=== PATIENT | female | born 1955 | race Caucasian/White ===

== ENCOUNTER 2018-08-13 16:08 | Emergency (ER) | payer OTHER ==
[2018-08-13 16:21] VITALS: RESP 18
--- NOTE | 2018-08-13 16:36 | ED ---
General Adult HPI - General Chief complaint: Extremity Problem,Nontraumatic Stated complaint: Lt leg/foot pain Time Seen by Provider: 08/13/18 16:22 Source: patient, RN notes reviewed, old records reviewed Mode of arrival: ambulatory Limitations: no limitations - History of Present Illness Initial comments: 62-year-old female patient presents to ED with approximately 3 weeks of left lower extremity pain. Patient was that she has pain in her posterior calf region as well as her foot. She reports that she was seen by her primary care provider for this problem approximately 3 weeks ago in which she had an outpatient ultrasound of her leg. Patient reports that she is still not gotten the results of this. Patient states that she still has pain in this region. Patient denies any other complaints. Patient denies any chest pain shortness breath abdominal pain nausea vomiting or diarrhea. Systemic: Pt denies fatigue, myalgia, fever/chills, rash. Pt denies weakness, night sweats, weight loss. Neuro: Pt denies headache, visual disturbances, syncope or pre-syncope. HEENT: Pt denies ocular discharge or irritation, otalgia, rhinorrhea, pharyngiti s or notable lymphadenopathy. Cardiopulmonary: Pt denies chest pain, SOB, heart palpitations, dyspnea on exertion. Abdominal/GI: Pt denies abdominal pain, n/v/d. : Pt denies dysuria, burning w/ urination, frequency/urgency. Denies new onset urinary or bowel incontinence. MSK: Pt denies myalgia, loss of strength or function in extremities. Neuro: Pt denies new onset weakness, paresthesias. - Related Data Home Medications Medication Instructions Recorded Confirmed Atorvastatin [Lipitor] 20 mg PO DAILY 08/13/18 08/13/18 Lisinopril 20 mg PO DAILY 08/13/18 08/13/18 Meclizine [Antivert] 25 mg PO DIRECTED PRN 08/13/18 08/13/18 metFORMIN HCL 500 mg PO DIRECTED 08/13/18 08/13/18 Allergies Allergy/AdvReac Type Severity Reaction Status Date / Time acetaminophen [From Vicodin] Allergy Rash/Hives Verified 08/13/18 16:21 hydrocodone [From Vicodin] Allergy Rash/Hives Verified 08/13/18 16:21 Penicillins Allergy Rash/Hives Verified 08/13/18 16:21 Review of Systems ROS Statement: Those systems with pertinent positive or pertinent negative responses have been documented in the HPI. ROS Other: All systems not noted in ROS Statement are negative. Past Medical History Past Medical History: Diabetes Mellitus, Hyperlipidemia, Hypertension Additional Past Medical History / Comment(s): vertigo History of Any Multi-Drug Resistant Organisms: None Reported Past Surgical History: Tubal Ligation Past Psychological History: No Psychological Hx Reported Smoking Status: Former smoker Past Alcohol Use History: None Reported Past Drug Use History: None Reported General Exam - General Exam Comments Initial Comments: Constitutional: NAD, AOX3, Pt has pleasant affect. HEENT: NC/AT, trachea midline, neck supple, no lymphadenopathy. Posterior pharynx non erythematous, without exudates. External ears appear normal, without discharge. Mucous membranes moist. Eyes PERRLA, EOM intact. There is no scleral icterus. No pallor noted. Cardiopulmonary: RRR, no murmurs, rubs or gallops, no JVD noted. Lungs CTAB in anterior and posterior alvarez. No peripheral edema. Abdominal exam: Abdomen soft and non-distended. Abdomen non-tender to palpation in all 4 quadrants. Bowel sounds active in LLQ. No hepatosplenomegaly. No ecchymosis Neuro: CN II-XII grossly intact. No nuchal rigidity. MSK: Left posterior calf mildly tender to palpation. Right posterior calf nontender to palpation. Homans sign negative bilaterally. Posterior tibialis and radial pulse +2 bilaterally. No erythema or edema. Sensation intact in upper and lower extremities. Full active ROM in upper and lower extremities, 5/5 stregnth. Limitations: no limitations Course Vital Signs 08/13/18 16:12 Temperature 97.9 F Pulse Rate 84 Respiratory 18 Rate Blood Pressure 138/70 O2 Sat by Pulse 99 Oximetry Medical Decision Making - Medical Decision Making 62-year-old female patient presents to ED with approximately 3 weeks of left lower extremity pain. Patient was that she has pain in her posterior calf region as well as her foot. She reports that she was seen by her primary care provider for this problem approximately 3 weeks ago in which she had an outpatient ultrasound of her leg. Patient reports that she is still not gotten the results of this. Patient states that she still has pain in this region. Melo ramirez denies any other complaints. Patient denies any chest pain shortness breath abdominal pain nausea vomiting or diarrhea. Patient vital signs stable, afebrile. Left posterior calf mildly tender to palpation. Right posterior calf nontender to palpation. Homans sign negative bilaterally. Posterior tibialis and radial pulse +2 bilaterally. No erythema or edema. Plain film of to/fibula, foot displayed no acute process. Venous Doppler ultrasound bilateral didn't displayany DVT. Patient stated that she has history of diabetic neuropathy, this' care. Patient pain. Patient discharged. Patient to follow up with primary care provider to 2 days. Patient also given orthopedic consult symptoms persist. Patient returned ER physician or symptoms. Case discussed with Dr. Kim. - Lab Data Result diagrams: 08/13/18 16:37 08/13/18 16:37 Lab Results 08/13/18 08/13/18 08/13/18 Range/Units 16:37 16:37 16:37 WBC 8.8 (3.8-10.6) k/uL RBC 5.08 (3.80-5.40) m/uL Hgb 15.2 (11.4-16.0) gm/dL Hct 45.8 (34.0-46.0) % MCV 90.3 (80.0-100.0) fL MCH 29.9 (25.0-35.0) pg MCHC 33.1 (31.0-37.0) g/dL RDW 13.4 (11.5-15.5) % Plt Count 291 (150-450) k/uL Neutrophils % 57 % Lymphocytes % 33 % Monocytes % 5 % Eosinophils % 3 % Basophils % 0 % Neutrophils # 5.0 (1.3-7.7) k/uL Lymphocytes # 2.9 (1.0-4.8) k/uL Monocytes # 0.5 (0-1.0) k/uL Eosinophils # 0.3 (0-0.7) k/uL Basophils # 0.0 (0-0.2) k/uL PT 9.5 (9.0-12.0) sec INR 0.9 (<1.2) APTT 21.5 L (22.0-30.0) sec Sodium 141 (137-145) mmol/L Potassium 4.5 (3.5-5.1) mmol/L Chloride 102 (98-107) mmol/L Carbon Dioxide 28 (22-30) mmol/L Anion Gap 11 mmol/L BUN 15 (7-17) mg/dL Creatinine 0.57 (0.52-1.04) mg/dL Est GFR (CKD-EPI)AfAm >90 (>60 ml/min/1.73 sqM) Est GFR (CKD-EPI)NonAf >90 (>60 ml/min/1.73 sqM) Glucose 214 H (74-99) mg/dL Calcium 9.6 (8.4-10.2) mg/dL Total Bilirubin 0.8 (0.2-1.3) mg/dL AST 20 (14-36) U/L ALT 30 (9-52) U/L Alkaline Phosphatase 93 (38-126) U/L Total Protein 7.2 (6.3-8.2) g/dL Albumin 4.6 (3.5-5.0) g/dL Disposition Clinical Impression: Myalgia Disposition: HOME SELF-CARE Condition: Stable Instructions (If sedation given, give patient instructions): Musculoskeletal Pain (ED) Additional Instructions: Patient to adhere to previously discussed treatment plan and will take medication(s) as directed. Patient to follow up with PCP in 1-2 days. Patient to return to ED if symptoms do not improve. follow up with PCP in 1-2 days. Please follow-up with orthopedic surgeon symptoms persist. Please return to ER if conditions worsen. Is patient prescribed a controlled substance at d/c from ED?: No [facility] Tyrone Eng MD [STAFF PHYSICIAN] - 1-2 days
[2018-08-13 16:46] LABS: Basophils % (A) 0 %; Eosinophils # (A) 0.3 k/uL (0-0.7); Eosinophils % (A) 3 %; HCT 45.8 % (34.0-46.0); HGB 15.2 gm/dL (11.4-16.0); Lymphocytes # (A) 2.9 k/uL (1.0-4.8); Lymphocytes % (A) 33 %; MCH 29.9 pg (25.0-35.0); MCHC 33.1 g/dL (31.0-37.0); MCV 90.3 fL (80.0-100.0); Mean Platelet Volume 7.5; Monocytes # (A) 0.5 k/uL (0-1.0); Monocytes % (A) 5 %; Neutrophils % (A) 57 %; Platelet Count 291 k/uL (150-450); RBC 5.08 m/uL (3.80-5.40); RDW 13.4 % (11.5-15.5); WBC 8.8 k/uL (3.8-10.6)
[2018-08-13 16:57] LABS: ALT 30 U/L (9-52); AST 20 U/L (14-36); Albumin 4.6 g/dL (3.5-5.0); Alkaline Phosphatase 93 U/L (38-126); Anion Gap 11 mmol/L; Blood Urea Nitrogen 15 mg/dL (7-17); Calcium 9.6 mg/dL (8.4-10.2); Carbon Dioxide 28 mmol/L (22-30); Chloride 102 mmol/L (98-107); Glucose 214 mg/dL (74-99); Potassium 4.5 mmol/L (3.5-5.1); Sodium 141 mmol/L (137-145); Total Bilirubin 0.8 mg/dL (0.2-1.3); Total Protein 7.2 g/dL (6.3-8.2)
[2018-08-13 17:04] LABS: INR 0.9 (<1.2); Prothrombin Time 9.5 sec (9.0-12.0)
[2018-08-13 17:05] LABS: Partial Thromboplastin Time 21.5 sec (22.0-30.0)
--- NOTE | 2018-08-13 17:17 | XR ---
PROCEDURE: XR tibia fibula LT - 3V DATE AND TIME: 08/13/2018 5:03 PM CLINICAL INDICATION: PHH; Pain TECHNIQUE: Department protocol COMPARISON: None FINDINGS: There is no fracture or malalignment. No focal skeletal lesion. Scattered degenerative join t changes are appreciated. The soft tissues are unremarkable. IMPRESSION: NO ACUTE PROCESS.
--- NOTE | 2018-08-13 17:18 | XR ---
PROCEDURE: XR foot complete LT - 3V DATE AND TIME: 08/13/2018 5:03 PM CLINICAL INDICATION: PHH; Pain TECHNIQUE: Department protocol COMPARISON: None FINDINGS: There is no fracture or malalignment. No focal skeletal findings. Scattered osteoarthritis changes are appreciated. The soft tissues are unremarkable. IMPRESSION: NO ACUTE PROCESS.
--- NOTE | 2018-08-13 18:27 | US ---
EXAMINATION TYPE: US venous doppler duplex LE BI DATE OF EXAM: 08/13/2018 4:31 PM COMPARISON: NONE CLINICAL HISTORY: Pain. Pain and swelling. SIDE PERFORMED: Bilateral TECHNIQUE: The lower extremity deep venous system is examined utilizing real time linear array sonog henrry with graded compression, doppler sonography and color-flow sonography. VESSELS IMAGED: External Iliac Vein (EIV) Common Femoral Vein Deep Femoral Vein Greater Saphenous Vein * Femoral Vein Popliteal Vein Small Saphenous Vein * Proximal Calf Veins (* superficial vessels) FINDINGS: Grayscale, color doppler, spectral doppler imaging performed of the deep veins of the lowe r extremities. There is normal flow, compressibility, vascular waveforms. IMPRESSION: NEGATIVE FOR DVT, BILATERAL LOWER EXTREMITIES.
[2018-08-13 19:01] VITALS: BP 142/67; PULSE 79; TEMP 98.1
== END 2018-08-13 18:55 | disposition home or self-care (01) ==
LOC: EC 16:08
DX: M79.18 Myalgia, other site (principal); E11.40 Type 2 diabetes mellitus with diabetic neuropathy, unspecified; E78.5 Hyperlipidemia, unspecified; I10 Essential (primary) hypertension; Z87.891 Personal history of nicotine dependence; Z98.51 Tubal ligation status; Z79.84 Long term (current) use of oral hypoglycemic drugs; Z79.899 Other long term (current) drug therapy
CPT/HCPCS: 36415; 80053; 85025; 85610; 85730; 93970; 99284

== ENCOUNTER 2019-11-26 12:48 | Emergency (ER) | payer MEDICARE, OTHER ==
[2019-11-26 12:53] VITALS: RESP 20; TEMP 97.7
--- NOTE | 2019-11-26 13:06 | ED ---
General Adult HPI - General Chief complaint: Dizziness Stated complaint: Dizziness Time Seen by Provider: 11/26/19 12:57 Source: patient, EMS Mode of arrival: EMS Limitations: no limitations - History of Present Illness Initial comments: Patient presents the ED ambulance for evaluation with her daughter at bedside. Patient states that she awoke at about 5:30 AM this morning with severe dizziness and nausea. Patient states that she has also had a few bouts of vomiting today. Patient states that her dizziness is worse when turning her head and with changes in position. Patient describes her dizziness as a "spinning" sensation. Patient states that she is not currently dizzy while sitting still. Patient was given a dose of Zofran by EMS. Patient states that she has a history of vertigo. Patient is diabetic, and her blood glucose was reportedly in the 300s today. Patient denies having any pain, fever or chills, cough or cold symptoms, dysuria or urinary symptoms, headache, focal numbness or weakness, visual changes, speech difficulty, chest pain, dyspnea, palpitations, syncope, abdominal pain, diarrhea, bloody or melanotic stool, hematemesis, or any other symptoms or complaints. - Related Data Home Medications Medication Instructions Recorded Confirmed Atorvastatin [Lipitor] 20 mg PO HS 08/13/18 11/26/19 lisinopriL 20 mg PO HS 08/13/18 11/26/19 metFORMIN HCL 500 mg PO BID 08/13/18 11/26/19 Previous Rx's Medication Instructions Recorded Meclizine [Antivert] 25 mg PO TID PRN #10 tab 11/26/19 Ondansetron Odt [Zofran Odt] 4 mg PO Q8HR PRN #10 tab 11/26/19 Allergies Allergy/AdvReac Type Severity Reaction Status Date / Time hydrocodone [From Vicodin] Allergy Rash/Hives Verified 11/26/19 13:57 Penicillins Allergy Rash/Hives Verified 11/26/19 13:57 Review of Systems ROS Statement: Those systems with pertinent positive or pertinent negative responses have been documented in the HPI. ROS Other: All systems not noted in ROS Statement are negative. Past Medical History Past Medical History: Diabetes Mellitus, Hyperlipidemia, Hypertension Additional Past Medical History / Comment(s): vertigo History of Any Multi-Drug Resistant Organisms: None Reported Past Surgical History: Tubal Ligation Past Psychological History: No Psychological Hx Reported Smoking Status: Former smoker Past Alcohol Use History: None Reported Past Drug Use History: None Reported General Exam Limitations: no limitations General appearance: alert, in no apparent distress Head exam: Present: atraumatic, normocephalic Eye exam: Present: normal appearance, PERRL, EOMI. Absent: nystagmus ENT exam: Present: mucous membranes moist, TM's normal bilaterally Neck exam: Present: other (Trachea is in midline). Absent: tenderness, meningismus Respiratory exam: Present: normal lung sounds bilaterally. Absent: respiratory distress, wheezes, rales, rhonchi Cardiovascular Exam: Present: regular rate, normal rhythm, normal heart sounds, other (Normal radial pulses bilaterally) GI/Abdominal exam: Present: soft. Absent: distended, tenderness, guarding Extremities exam: Present: full ROM. Absent: tenderness, pedal edema, calf tenderness Neurological exam: Present: alert, oriented X3, CN II-XII intact. Absent: motor sensory deficit Psychiatric exam: Present: normal affect, normal mood Skin exam: Present: warm, dry, intact, normal color Course Vital Signs 11/26/19 12:49 Temperature 97.7 F Pulse Rate 75 Respiratory 20 Rate Blood Pressure 141/83 O2 Sat by Pulse 97 Oximetry - Reevaluation(s) Reevaluation #1: 11/26/19 14:35 Patient states that her dizziness and nausea have now improved, and she denies development of any new symptoms while in the ED. Patient has been ambulatory in the ED and has been able to go to the bathroom by herself without any assistance. She remains alert and breathing comfortably. Patient and daughter are aware of the patient's test results, and patient feels comfortable going home with her daughter at this time. Patient was counseled about dizziness/positional vertigo and hyperglycemia. Patient was clearly explained return and follow-up instructions. Patient was instructed to follow up closely with her primary care provider. Patient feels comfortable with this plan. EKG Findings - EKG Comments: EKG Findings:: Normal sinus rhythm, ventricular rate of 73 bpm, single PAC, normal WI and QRS intervals, nonspecific ST abnormality, mildly prolonged QTc interval of 471 ms, normal axis Medical Decision Making - Medical Decision Making Patient reports sudden onset of "spinning" dizziness while in bed this morning. Patient reports that her dizziness is worse when turning her head and with changes in position. Patient reports having history of vertigo. Patient's head CT is unremarkable. Patient is noted to be slightly hyperglycemic, but not ketotic or acidotic. Patient was hydrated with IV fluids in the ED. Patient's labs are otherwise fairly unremarkable. I suspect that the patient's symptoms are likely secondary to positional vertigo. Will discharge patient home with her daughter at this time. - Lab Data Result diagrams: 11/26/19 13:15 11/26/19 13:15 Lab Results 11/26/19 11/26/19 11/26/19 Range/Units 13:15 13:15 13:15 WBC 8.0 (3.8-10.6) k/uL RBC 4.68 (3.80-5.40) m/uL Hgb 14.5 (11.4-16.0) gm/dL Hct 42.2 (34.0-46.0) % MCV 90.3 (80.0-100.0) fL MCH 30.9 (25.0-35.0) pg MCHC 34.2 (31.0-37.0) g/dL RDW 12.9 (11.5-15.5) % Plt Count 237 (150-450) k/uL Neutrophils % 75 % Lymphocytes % 18 % Monocytes % 5 % Eosinophils % 1 % Basophils % 1 % Neutrophils # 6.0 (1.3-7.7) k/uL Lymphocytes # 1.4 (1.0-4.8) k/uL Monocytes # 0.4 (0-1.0) k/uL Eosinophils # 0.1 (0-0.7) k/uL Basophils # 0.0 (0-0.2) k/uL Sodium 135 L (137-145) mmol/L Potassium 4.8 (3.5-5.1) mmol/L Chloride 103 (98-107) mmol/L Carbon Dioxide 24 (22-30) mmol/L Anion Gap 8 mmol/L BUN 9 (7-17) mg/dL Creatinine 0.45 L (0.52-1.04) mg/dL Est GFR (CKD-EPI)AfAm >90 (>60 ml/min/1.73 sqM) Est GFR (CKD-EPI)NonAf >90 (>60 ml/min/1.73 sqM) Glucose 297 H (74-99) mg/dL Calcium 8.8 (8.4-10.2) mg/dL Total Bilirubin 0.8 (0.2-1.3) mg/dL AST 20 (14-36) U/L ALT 15 (4-34) U/L Alkaline Phosphatase 116 (38-126) U/L Troponin I 0.025 (0.000-0.034) ng/mL Total Protein 6.4 (6.3-8.2) g/dL Albumin 3.9 (3.5-5.0) g/dL Acetone, Qual Negative (Negative) - Radiology Data Radiology results: report reviewed (CT head is negative) Disposition Clinical Impression: Dizziness, Hyperglycemia Narrative: Suspected positional vertigo Disposition: HOME SELF-CARE Condition: Stable Instructions (If sedation given, give patient instructions): Dizziness (ED), Vertigo (ED), Diabetic Hyperglycemia (ED) Additional Instructions: Return to the ER immediately should you develop increased dizziness, fainting, any significant pain, a fever, shortness of breath, persistent vomiting, or new or worsening symptoms. Follow up closely with your primary care provider. Prescriptions: Meclizine [Antivert] 25 mg PO TID PRN #10 tab PRN Reason: Dizziness Ondansetron Odt [Zofran Odt] 4 mg PO Q8HR PRN #10 tab PRN Reason: Nausea Is patient prescribed a controlled substance at d/c from ED?: No Referrals: Annie Fagan MD [Primary Care Provider] - 1-2 days Time of Disposition: 14:42
[2019-11-26] MEDS ORDERED: LORazepam 2 MG/ML INJ IV STA (13:10)
[2019-11-26] MEDS ORDERED: SODIUM CHLORIDE 0.9% 1,000 ML IV STA (13:10)
[2019-11-26] MEDS ORDERED: ONDANSETRON 4 MG/2 ML VIAL IVP STA (13:10)
[2019-11-26] MEDS ORDERED: diphenhydrAMINE 50 MG/ML 1 ML VIAL IVP STA (13:10)
[2019-11-26] MEDS ORDERED: MECLIZINE 12.5 MG TAB PO STA (13:10)
[2019-11-26 13:24] LABS: Basophils % (A) 1 %; Eosinophils # (A) 0.1 k/uL (0-0.7); Eosinophils % (A) 1 %; HCT 42.2 % (34.0-46.0); HGB 14.5 gm/dL (11.4-16.0); Lymphocytes # (A) 1.4 k/uL (1.0-4.8); Lymphocytes % (A) 18 %; MCH 30.9 pg (25.0-35.0); MCHC 34.2 g/dL (31.0-37.0); MCV 90.3 fL (80.0-100.0); Mean Platelet Volume 8.3; Monocytes # (A) 0.4 k/uL (0-1.0); Monocytes % (A) 5 %; Neutrophils % (A) 75 %; Platelet Count 237 k/uL (150-450); RBC 4.68 m/uL (3.80-5.40); RDW 12.9 % (11.5-15.5)
[2019-11-26 13:32] LABS: ALT 15 U/L (4-34); AST 20 U/L (14-36); African American GFR (CKD) >90 (>60 ml/min/1.73 sqM); Albumin 3.9 g/dL (3.5-5.0); Alkaline Phosphatase 116 U/L (38-126); Anion Gap 8 mmol/L; Blood Urea Nitrogen 9 mg/dL (7-17); Calcium 8.8 mg/dL (8.4-10.2); Carbon Dioxide 24 mmol/L (22-30); Chloride 103 mmol/L (98-107); Glucose 297 mg/dL (74-99); Non-African American GFR(CKD) >90 (>60 ml/min/1.73 sqM); Potassium 4.8 mmol/L (3.5-5.1); Sodium 135 mmol/L (137-145); Total Bilirubin 0.8 mg/dL (0.2-1.3); Total Protein 6.4 g/dL (6.3-8.2)
--- NOTE | 2019-11-26 14:29 | CT ---
EXAMINATION TYPE: CT brain wo con DATE OF EXAM: 11/26/2019 HISTORY: Dizziness and nausea CT DLP: 1099.4 mGycm. Automated Exposure Control for Dose Reduction was Utilized. TECHNIQUE: CT scan of the head is performed without contrast. COMPARISON: None FINDINGS: There is no acute intracranial hemorrhage, midline shift, or mass effect identified. Mild patchy whit e matter hypodensities most likely of sequela of chronic microvascular ischemic change. The ventricles, sulci, and cisterns are normal in configuration and prominent in size concordant with age related volume loss. No extra-axial fluid collection. Bones and extracranial soft tissues are intact. The globes are gross ly symmetric. Visualized sinuses and mastoid air cells are clear. IMPRESSION: No acute intracranial hemorrhage, midline shift, or mass effect.
[2019-11-26 14:39] VITALS: BP 135/63; PULSE 70
== END 2019-11-26 14:55 | disposition home or self-care (01) ==
LOC: EC 12:48
DX: E11.65 Type 2 diabetes mellitus with hyperglycemia (principal); I10 Essential (primary) hypertension; E78.5 Hyperlipidemia, unspecified; E11.9 Type 2 diabetes mellitus without complications; Z79.84 Long term (current) use of oral hypoglycemic drugs; Z79.899 Other long term (current) drug therapy; Z88.0 Allergy status to penicillin; Z88.5 Allergy status to narcotic agent; Z88.6 Allergy status to analgesic agent; Z87.891 Personal history of nicotine dependence
CPT/HCPCS: 36415; 93005; 80053; 82009; 84484; 85025; 70450; 99285; 96374; 96375 ×2; 96361; J2060; J1200; J2405

== ENCOUNTER 2021-05-31 18:59 | Emergency (ER) | payer MEDICARE ==
[2021-05-31 20:41] LABS: Basophils # (A) 0.1 k/uL (0-0.2); Basophils % (A) 1 %; Eosinophils # (A) 0.1 k/uL (0-0.7); Eosinophils % (A) 1 %; HCT 47.9 % (34.0-46.0); HGB 16.2 gm/dL (11.4-16.0); Lymphocytes # (A) 2.5 k/uL (1.0-4.8); Lymphocytes % (A) 33 %; MCH 30.9 pg (25.0-35.0); MCHC 33.7 g/dL (31.0-37.0); MCV 91.6 fL (80.0-100.0); Mean Platelet Volume 8.4; Monocytes # (A) 0.4 k/uL (0-1.0); Monocytes % (A) 5 %; Neutrophils # (A) 4.6 k/uL (1.3-7.7); Neutrophils % (A) 58 %; Platelet Count 186 k/uL (150-450); RBC 5.23 m/uL (3.80-5.40); RDW 13.1 % (11.5-15.5); WBC 7.8 k/uL (3.8-10.6)
[2021-05-31 20:50] LABS: INR 0.9 (<1.2); Prothrombin Time 10.4 sec (9.0-12.0)
[2021-05-31 20:51] LABS: Albumin 4.2 g/dL (3.5-5.0); Calcium 9.2 mg/dL (8.4-10.2); Potassium 4.6 mmol/L (3.5-5.1); Total Bilirubin 0.9 mg/dL (0.2-1.3); Total Protein 7.1 g/dL (6.3-8.2)
[2021-05-31] MEDS ORDERED: MECLIZINE 12.5 MG TAB PO STA (22:08)
[2021-05-31] MEDS ORDERED: SODIUM CHLORIDE 0.9% 1,000 ML IV STA (22:08)
--- NOTE | 2021-05-31 22:30 | ED ---
General Adult HPI - General Chief complaint: Dizziness Stated complaint: lethargic, possible dehydration Time Seen by Provider: 05/31/21 22:07 Source: patient Mode of arrival: wheelchair Limitations: no limitations - History of Present Illness Initial comments: This patient is a 65-year-old woman who presents with complaint that she is not feeling well. She states that about 8 days ago she started having some scratchy throat and congestion. Over the course the next few days she developed chills, myalgias, nausea and vomiting which she states mostly due to vertigo. She now is feeling dehydrated. She states that she has had decreased urination. She has had diarrhea, 3 bowel movements yesterday none today. Onset/Timin -: days(s) Quality: aching Consistency: constant Improves with: none Worsens with: none Associated Symptoms: diaphoresis, malaise, nausea/vomiting, weakness, other (Vertigo/myalgias) - Related Data Home Medications Medication Instructions Recorded Confirmed Atorvastatin [Lipitor] 20 mg PO HS 08/13/18 05/31/21 lisinopriL 20 mg PO HS 08/13/18 05/31/21 metFORMIN HCL 500 mg PO BID 08/13/18 05/31/21 Allergies Allergy/AdvReac Type Severity Reaction Status Date / Time hydrocodone [From Vicodin] Allergy Rash/Hives Verified 05/31/21 22:26 Penicillins Allergy Rash/Hives Verified 05/31/21 22:26 Review of Systems ROS Statement: Those systems with pertinent positive or pertinent negative responses have been documented in the HPI. ROS Other: All systems not noted in ROS Statement are negative. Constitutional: Reports: chills, weakness. Denies: fever ENT: Reports: as per HPI, throat pain, congestion Respiratory: Denies: cough, dyspnea, wheezes Cardiovascular: Reports: palpitations. Denies: chest pain, edema, syncope Gastrointestinal: Reports: nausea, vomiting, diarrhea. Denies: hematemesis, melena, hematochezia Genitourinary: Denies: dysuria, frequency Musculoskeletal: Denies: back pain Skin: Denies: rash Neurological: Reports: headache Past Medical History Past Medical History: Diabetes Mellitus, Hyperlipidemia, Hypertension Additional Past Medical History / Comment(s): vertigo History of Any Multi-Drug Resistant Organisms: None Reported Past Surgical History: Tubal Ligation Past Psychological History: No Psychological Hx Reported Smoking Status: Former smoker Past Alcohol Use History: None Reported Past Drug Use History: None Reported General Exam Limitations: no limitations General appearance: alert, in no apparent distress, anxious Head exam: Present: atraumatic, normocephalic Eye exam: Present: normal appearance. Absent: scleral icterus, conjunctival injection ENT exam: Present: mucous membranes dry Neck exam: Present: normal inspection, full ROM Respiratory exam: Present: normal lung sounds bilaterally. Absent: respiratory distress, wheezes, rales, rhonchi, stridor Cardiovascular Exam: Present: normal rhythm, tachycardia, normal heart sounds. Absent: systolic murmur, diastolic murmur, rubs, gallop GI/Abdominal exam: Present: soft. Absent: distended, tenderness, guarding, rebound, rigid, mass, pulsatile mass Extremities exam: Present: normal inspection, normal capillary refill. Absent: pedal edema, calf tenderness Back exam: Present: normal inspection. Absent: CVA tenderness (R), CVA tenderness (L) Neurological exam: Present: alert Skin exam: Present: warm, dry, intact, normal color. Absent: rash Course Vital Signs 05/31/21 06/01/21 19:59 02:18 Temperature 96.6 F L 98.1 F Pulse Rate 66 70 Respiratory 22 18 Rate Blood Pressure 98/58 112/68 O2 Sat by Pulse 97 96 Oximetry EKG Findings - EKG Comments: EKG Findings:: Underlying rhythm appears to be sinus with multiple premature atrial contractions - EKG Results: EKG: interpreted by ERMD, normal axis, normal QRS EKG shows: tachycardia (Rate 126 bpm) - Blocks, Walden, Hypertrophy, ST Abn: Repolarization changes or abnormalities: ST or T wave suggestive of ischemia (Possible inferior ischemia) Medical Decision Making - Medical Decision Making The repeat ECG does show sinus rhythm with one PVC rate 80 BPM. Otherwise unchanged. - Lab Data Result diagrams: 05/31/21 20:34 05/31/21 20:34 Lab Results 05/31/21 05/31/21 05/31/21 Range/Units 20:13 20:34 20:34 WBC 7.8 (3.8-10.6) k/uL RBC 5.23 (3.80-5.40) m/uL Hgb 16.2 H (11.4-16.0) gm/dL Hct 47.9 H (34.0-46.0) % MCV 91.6 (80.0-100.0) fL MCH 30.9 (25.0-35.0) pg MCHC 33.7 (31.0-37.0) g/dL RDW 13.1 (11.5-15.5) % Plt Count 186 (150-450) k/uL MPV 8.4 Neutrophils % 58 % Lymphocytes % 33 % Monocytes % 5 % Eosinophils % 1 % Basophils % 1 % Neutrophils # 4.6 (1.3-7.7) k/uL Lymphocytes # 2.5 (1.0-4.8) k/uL Monocytes # 0.4 (0-1.0) k/uL Eosinophils # 0.1 (0-0.7) k/uL Basophils # 0.1 (0-0.2) k/uL PT (9.0-12.0) sec INR (<1.2) Sodium 138 (137-145) mmol/L Potassium 4.6 (3.5-5.1) mmol/L Chloride 102 (98-107) mmol/L Carbon Dioxide 26 (22-30) mmol/L Anion Gap 10 mmol/L BUN 20 H (7-17) mg/dL Creatinine 0.86 (0.52-1.04) mg/dL Est GFR (CKD-EPI)AfAm 82 (>60 ml/min/1.73 sqM) Est GFR (CKD-EPI)NonAf 71 (>60 ml/min/1.73 sqM) Glucose 158 H (74-99) mg/dL Calcium 9.2 (8.4-10.2) mg/dL Total Bilirubin 0.9 (0.2-1.3) mg/dL AST 27 (14-36) U/L ALT 22 (4-34) U/L Alkaline Phosphatase 123 (38-126) U/L Troponin I (0.000-0.034) ng/mL Total Protein 7.1 (6.3-8.2) g/dL Albumin 4.2 (3.5-5.0) g/dL Coronavirus (PCR) Detected A (Not Detectd) 05/31/21 05/31/21 Range/Units 20:34 20:34 WBC (3.8-10.6) k/uL RBC (3.80-5.40) m/uL Hgb (11.4-16.0) gm/dL Hct (34.0-46.0) % MCV (80.0-100.0) fL MCH (25.0-35.0) pg MCHC (31.0-37.0) g/dL RDW (11.5-15.5) % Plt Count (150-450) k/uL MPV Neutrophils % % Lymphocytes % % Monocytes % % Eosinophils % % Basophils % % Neutrophils # (1.3-7.7) k/uL Lymphocytes # (1.0-4.8) k/uL Monocytes # (0-1.0) k/uL Eosinophils # (0-0.7) k/uL Basophils # (0-0.2) k/uL PT 10.4 (9.0-12.0) sec INR 0.9 (<1.2) Sodium (137-145) mmol/L Potassium (3.5-5.1) mmol/L Chloride (98-107) mmol/L Carbon Dioxide (22-30) mmol/L Anion Gap mmol/L BUN (7-17) mg/dL Creatinine (0.52-1.04) mg/dL Est GFR (CKD-EPI)AfAm (>60 ml/min/1.73 sqM) Est GFR (CKD-EPI)NonAf (>60 ml/min/1.73 sqM) Glucose (74-99) mg/dL Calcium (8.4-10.2) mg/dL Total Bilirubin (0.2-1.3) mg/dL AST (14-36) U/L ALT (4-34) U/L Alkaline Phosphatase (38-126) U/L Troponin I <0.012 (0.000-0.034) ng/mL Total Protein (6.3-8.2) g/dL Albumin (3.5-5.0) g/dL Coronavirus (PCR) (Not Detectd) Disposition Clinical Impression: COVID-19 Disposition: HOME SELF-CARE Condition: Good Instructions (If sedation given, give patient instructions): Coronavirus Disease 2019 (COVID-19) Is patient prescribed a controlled substance at d/c from ED?: No Referrals: Annie Fagan MD [Primary Care Provider] - 1-2 days
--- NOTE | 2021-05-31 23:37 | CT ---
EXAMINATION TYPE: CT brain wo con DATE OF EXAM: 05/31/2021 COMPARISON: 11/26/2019 HISTORY: vertigo CT DLP: 1091.4 mGycm Automated exposure control for dose reduction was used. There is some cerebral cortical atrophy. There is no mass effect or midline shift. There is no sign o f intracranial hemorrhage. Calvarium is intact. Skull base is intact. IMPRESSION: Cerebral atrophy. No acute intracranial abnormality.
[2021-06-01 02:20] VITALS: BP 112/68; PULSE 70; RESP 18; TEMP 98.1
== END 2021-06-01 04:00 | disposition home or self-care (01) ==
LOC: EC 18:59
DX: U07.1 COVID-19 (principal); E11.9 Type 2 diabetes mellitus without complications; I10 Essential (primary) hypertension; E78.5 Hyperlipidemia, unspecified; Z87.891 Personal history of nicotine dependence; Z79.84 Long term (current) use of oral hypoglycemic drugs; Z79.899 Other long term (current) drug therapy; Z88.0 Allergy status to penicillin
CPT/HCPCS: 36415; 70450; 80053; 84484; 85025; 85610; 87635; 93005; 96360; 96361; 99284

== ENCOUNTER 2023-08-05 05:23 | Emergency (ER) | payer MEDICARE ==
[2023-08-05 05:45] VITALS: TEMP 98.1
[2023-08-05] MEDS: SODIUM CHLORIDE 0.9% 1,000 ML IV STA (06:41)
[2023-08-05] MEDS: ONDANSETRON 4 MG/2 ML VIAL IVP STA (06:41)
[2023-08-05] MEDS: SODIUM CHLORIDE 0.9% 500 ML 500 ML IV STA (06:41)
[2023-08-05 06:48] LABS: Basophils # (A) 0.1 k/uL (0-0.2); Basophils % (A) 1 %; Eosinophils # (A) 0.2 k/uL (0-0.7); Eosinophils % (A) 2 %; HCT 42.8 % (34.0-46.0); Lymphocytes # (A) 1.8 k/uL (1.0-4.8); Lymphocytes % (A) 24 %; MCH 30.3 pg (25.0-35.0); MCHC 32.7 g/dL (31.0-37.0); MCV 92.6 fL (80.0-100.0); Mean Platelet Volume 7.6; Monocytes # (A) 0.5 k/uL (0-1.0); Monocytes % (A) 7 %; Neutrophils % (A) 65 %; Platelet Count 202 k/uL (150-450); RBC 4.62 m/uL (3.80-5.40); RDW 13.7 % (11.5-15.5); WBC 7.7 k/uL (3.8-10.6)
[2023-08-05 06:59] LABS: ALT 28 U/L (4-34); AST 27 U/L (14-36); African American GFR (CKD) >90 (>60 ml/min/1.73 sqM); Albumin 4.3 g/dL (3.5-5.0); Alkaline Phosphatase 113 U/L (38-126); Anion Gap 11 mmol/L; Blood Urea Nitrogen 12 mg/dL (7-17); Calcium 9.1 mg/dL (8.4-10.2); Carbon Dioxide 23 mmol/L (22-30); Chloride 104 mmol/L (98-107); Glucose 207 mg/dL (74-99); Lipase 177 U/L (23-300); Non-African American GFR(CKD) >90 (>60 ml/min/1.73 sqM); Potassium 4.5 mmol/L (3.5-5.1); Sodium 138 mmol/L (137-145); Total Bilirubin 0.9 mg/dL (0.2-1.3)
--- NOTE | 2023-08-05 07:05 | ED ---
Abdominal Pain HPI - General Chief Complaint: Abdominal Pain Stated Complaint: Abd pain Time Seen by Provider: 08/05/23 05:41 Source: patient, RN notes reviewed Mode of arrival: ambulatory Limitations: no limitations - History of Present Illness Initial Comments: 67-year-old female presents emergency department with chief complaint of abdominal pain. She had increasing abdominal pain over last 3 days. She states that diffuse but worse in the right lower quadrant. She does admit to nausea without change in bowel habits no dysuria no fevers or chills. Patient denies any prior abdominal surgeries other than tubal ligation. Patient denies any sick contacts no cough or cold-like symptoms - Related Data Home Medications Medication Instructions Recorded Confirmed Atorvastatin [Lipitor] 20 mg PO HS 08/13/18 05/31/21 lisinopriL 20 mg PO HS 08/13/18 05/31/21 metFORMIN HCL 500 mg PO BID 08/13/18 05/31/21 Previous Rx's Medication Instructions Recorded bisacodyL [Dulcolax] 10 mg PO ONCE PRN #14 tab 08/05/23 Allergies Allergy/AdvReac Type Severity Reaction Status Date / Time hydrocodone [From Vicodin] Allergy Rash/Hives Verified 08/05/23 05:30 Penicillins Allergy Rash/Hives Verified 08/05/23 05:30 Review of Systems ROS Statement: Those systems with pertinent positive or pertinent negative responses have been documented in the HPI. ROS Other: All systems not noted in ROS Statement are negative. Past Medical History Past Medical History: Diabetes Mellitus, Hyperlipidemia, Hypertension Additional Past Medical History / Comment(s): vertigo History of Any Multi-Drug Resistant Organisms: None Reported Past Surgical History: Tubal Ligation Past Psychological History: No Psychological Hx Reported Smoking Status: Former smoker Past Alcohol Use History: None Reported Past Drug Use History: None Reported General Exam Limitations: no limitations General appearance: alert, in no apparent distress Head exam: Present: atraumatic, normocephalic, normal inspection Eye exam: Present: normal appearance, PERRL, EOMI. Absent: scleral icterus, conjunctival injection, periorbital swelling ENT exam: Present: normal exam, normal oropharynx, mucous membranes moist Neck exam: Present: normal inspection, full ROM. Absent: tenderness, meningismus, lymphadenopathy Respiratory exam: Present: normal lung sounds bilaterally. Absent: respiratory distress, wheezes, rales, rhonchi, stridor Cardiovascular Exam: Present: regular rate, normal rhythm, normal heart sounds. Absent: systolic murmur, diastolic murmur, rubs, gallop, clicks GI/Abdominal exam: Present: soft, tenderness, normal bowel sounds. Absent: dist ended, guarding, rebound, rigid Back exam: Absent: CVA tenderness (R), CVA tenderness (L) Neurological exam: Present: alert Skin exam: Present: warm, dry, intact, normal color. Absent: rash Course Vital Signs 08/05/23 08/05/23 08/05/23 05:28 08:09 09:21 Temperature 98.1 F Pulse Rate 56 L 90 71 Respiratory 16 18 18 Rate Blood Pressure 184/63 176/88 175/79 O2 Sat by Pulse 99 94 L 94 L Oximetry Medical Decision Making - Medical Decision Making Was pt. sent in by a medical professional or institution ([facility], [facility], urgent care, hospital, or jail...) When possible be specific @ -No Did you speak to anyone other than the patient for history (EMS, parent, family, police, friend...)? What history was obtained from this source @ -No Did you review nursing and triage notes (agree or disagree)? Why? @ -I reviewed and agree with nursing and triage notes Were old charts reviewed (outside hosp., previous admission, EMS record, old EKG, old radiological studies, urgent care reports/EKG's, jail records)? Report findings @ -No old charts were reviewed Differential Diagnosis (chest pain, altered mental status, abdominal pain women, abdominal pain men, vaginal bleeding, weakness, fever, dyspnea, syncope, headache, dizziness, GI bleed, back pain, seizure, CVA, palpatations, mental health, musculoskeletal)? @ -Differential Abdominal Pain Women: Appendicitis, Cholecystitis, diverticulosis, ischemic bowel, pancreatitis, hepatitis, UTI, gastroenteritis, AAA, incarcerated hernia, bowel obstruction, constipation, inflammatory bowel, hepatitis, peptic ulcer disease, splenic infarction, perforated viscus, vulvitis, ovarian torsion, PID, kidney stone, placenta abruption, this is not meant to be an all-inclusive list EKG interpreted by me (3pts min.). @ -None X-rays interpreted by me (1pt min.). @ -None done CT interpreted by me (1pt min.). @ -CT abdomen pelvis showing moderate constipation U/S interpreted by me (1pt. min.). @ -None done What testing was considered but not performed or refused? (CT, X-rays, U/S, labs)? Why? @ -None What meds were considered but not given or refused? Why? @ -None Did you discuss the management of the patient with other professionals (prof david i.e. , PA, [employer], lab, RT, psych nurse, psychologist social, direct marketing analyst, teacher, special officer, senior case manager)? Give summary @ -No Was smoking cessation discussed for >3mins.? @ -No Was critical care preformed (if so, how long)? @ -No Were there social determinants of health that impacted care today? How? (Homelessness, low income, unemployed, alcoholism, drug addiction, transportation, low edu. Level, literacy, decrease access to med. care, fdc, rehab)? @ -No Was there de-escalation of care discussed even if they declined (Discuss DNR or withdrawal of care, Hospice)? DNR status @ -No What co-morbidities impacted this encounter? (DM, HTN, Smoking, COPD, CAD, Cancer, CVA, ARF, Chemo, Hep., AIDS, mental health diagnosis, sleep apnea, morbid obesity)? @ -None Was patient admitted / discharged? Hospital course, mention meds given and route, prescriptions, significant lab abnormalities, going to OR and other pertinent info. @ -Discharge patient had full workup including labs, CT showing evidence of moderate constipation patient given laxatives will be discharged in stable condition return plans discussed. Undiagnosed new problem with uncertain prognosis? @ -No Drug Therapy requiring intensive monitoring for toxicity (Heparin, Nitro, Insulin, Cardizem)? @ -No Were any procedures done? @ -No Diagnosis/symptom? @ -Abdominal pain, constipation Acute, or Chronic, or Acute on Chronic? @ -Acute Uncomplicated (without systemic symptoms) or Complicated (systemic symptoms)? @ -Complicated Side effects of treatment? @ -No Exacerbation, Progression, or Severe Exacerbation? @ -No Poses a threat to life or bodily function? How? (Chest pain, [place], [place], pneumonia, PE, COPD, DKA, ARF, appy, cholecystitis, CVA, Diverticulitis, Homicidal, Suicidal, threat to staff... and all critical care pts) @ -No - Lab Data Result diagrams: 08/05/23 06:37 08/05/23 06:37 Lab Results 08/05/23 08/05/23 08/05/23 Range/Units 06:37 06:37 06:37 WBC 7.7 (3.8-10.6) k/uL RBC 4.62 (3.80-5.40) m/uL Hgb 14.0 (11.4-16.0) gm/dL Hct 42.8 (34.0-46.0) % MCV 92.6 (80.0-100.0) fL MCH 30.3 (25.0-35.0) pg MCHC 32.7 (31.0-37.0) g/dL RDW 13.7 (11.5-15.5) % Plt Count 202 (150-450) k/uL MPV 7.6 Neutrophils % 65 % Lymphocytes % 24 % Monocytes % 7 % Eosinophils % 2 % Basophils % 1 % Neutrophils # 5.0 (1.3-7.7) k/uL Lymphocytes # 1.8 (1.0-4.8) k/uL Monocytes # 0.5 (0-1.0) k/uL Eosinophils # 0.2 (0-0.7) k/uL Basophils # 0.1 (0-0.2) k/uL Sodium 138 (137-145) mmol/L Potassium 4.5 (3.5-5.1) mmol/L Chloride 104 (98-107) mmol/L Carbon Dioxide 23 (22-30) mmol/L Anion Gap 11 mmol/L BUN 12 (7-17) mg/dL Creatinine 0.54 (0.52-1.04) mg/dL Est GFR (CKD-EPI)AfAm >90 (>60 ml/min/1.73 sqM) Est GFR (CKD-EPI)NonAf >90 (>60 ml/min/1.73 sqM) Glucose 207 H (74-99) mg/dL Plasma Lactic Acid Xu 1.4 (0.7-2.0) mmol/L Calcium 9.1 (8.4-10.2) mg/dL Total Bilirubin 0.9 (0.2-1.3) mg/dL AST 27 (14-36) U/L ALT 28 (4-34) U/L Alkaline Phosphatase 113 (38-126) U/L Total Protein 7.0 (6.3-8.2) g/dL Albumin 4.3 (3.5-5.0) g/dL Lipase 177 (23-300) U/L Urine Color Urine Appearance (Clear) Urine pH (5.0-8.0) Ur Specific [place] (1.001-1.035) Urine Protein (Negative) Urine Glucose (UA) (Negative) Urine Ketones (Negative) Urine Blood (Negative) Urine Nitrite (Negative) Urine Bilirubin (Negative) Urine Urobilinogen (<2.0) mg/dL Ur Leukocyte Esterase (Negative) Urine RBC (0-5) /hpf Urine WBC (0-5) /hpf Ur Squamous Epith Cells (0-4) /hpf Urine Mucus (None) /hpf 08/05/23 Range/Units 08:09 WBC (3.8-10.6) k/uL RBC (3.80-5.40) m/uL Hgb (11.4-16.0) gm/dL Hct (34.0-46.0) % MCV (80.0-100.0) fL MCH (25.0-35.0) pg MCHC (31.0-37.0) g/dL RDW (11.5-15.5) % Plt Count (150-450) k/uL MPV Neutrophils % % Lymphocytes % % Monocytes % % Eosinophils % % Basophils % % Neutrophils # (1.3-7.7) k/uL Lymphocytes # (1.0-4.8) k/uL Monocytes # (0-1.0) k/uL Eosinophils # (0-0.7) k/uL Basophils # (0-0.2) k/uL Sodium (137-145) mmol/L Potassium (3.5-5.1) mmol/L Chloride (98-107) mmol/L Carbon Dioxide (22-30) mmol/L Anion Gap mmol/L BUN (7-17) mg/dL Creatinine (0.52-1.04) mg/dL Est GFR (CKD-EPI)AfAm (>60 ml/min/1.73 sqM) Est GFR (CKD-EPI)NonAf (>60 ml/min/1.73 sqM) Glucose (74-99) mg/dL Plasma Lactic Acid Xu (0.7-2.0) mmol/L Calcium (8.4-10.2) mg/dL Total Bilirubin (0.2-1.3) mg/dL AST (14-36) U/L ALT (4-34) U/L Alkaline Phosphatase (38-126) U/L Total Protein (6.3-8.2) g/dL Albumin (3.5-5.0) g/dL Lipase (23-300) U/L Urine Color Colorless Urine Appearance Clear (Clear) Urine pH 7.0 (5.0-8.0) Ur Specific [place] 1.037 H (1.001-1.035) Urine Protein Negative (Negative) Urine Glucose (UA) 2+ H (Negative) Urine Ketones Negative (Negative) Urine Blood Negative (Negative) Urine Nitrite Negative (Negative) Urine Bilirubin Negative (Negative) Urine Urobilinogen <2.0 (<2.0) mg/dL Ur Leukocyte Esterase Moderate H (Negative) Urine RBC 1 (0-5) /hpf Urine WBC 6 H (0-5) /hpf Ur Squamous Epith Cells 2 (0-4) /hpf Urine Mucus Rare H (None) /hpf Disposition Clinical Impression: Constipation, Abdominal pain Disposition: HOME SELF-CARE Condition: Stable Instructions (If sedation given, give patient instructions): Constipation (ED), High Fiber Diet (ED) Additional Instructions: Please return to the Emergency Department if symptoms worsen or any other concerns. Prescriptions: bisacodyL [Dulcolax] 10 mg PO ONCE PRN #14 tab PRN Reason: Constipation Is patient prescribed a controlled substance at d/c from ED?: No Referrals: Annie Fagan MD [Primary Care Provider] - 1-2 days Time of Disposition: 08:54
--- NOTE | 2023-08-05 07:46 | CT ---
EXAMINATION TYPE: CT abdomen pelvis w con DATE OF EXAM: 08/05/2023 COMPARISON: None HISTORY: Abdominal pain CT DLP: 1584.7 mGycm CONTRAST: CT scan of the abdomen and pelvis is performed without Oral Contrast and with IV Contrast, patient in jected with 100 ml mL of Isovue 300. FINDINGS: LUNG BASES-: No visible nodule. No infiltrate. LIVER/GB: No calcified gallstones. No space occupying hepatic lesion. Biliary tree is of normal ca liber. PANCREAS: No inflammation. No distinct mass. SPLEEN: No splenic enlargement. No lesion seen. ADRENALS: No nodule. No thickening. KIDNEYS/BLADDER: No hydronephrosis. No nephrolithiasis. No distinct renal mass. Urinary bladder g rossly unremarkable. BOWEL: Normal appendix. Normal bowel caliber. No inflammation. Moderate fecal stasis. GENITAL ORGANS: No gross abnormality. LYMPH NODES: No greater than 1cm abdominal or pelvic lymph nodes are appreciated. AORTA: No significant abnormality. OSSEOUS STRUCTURES: No significant abnormality is seen. OTHER: No significant additional abnormality is seen. IMPRESSION: 1. Moderate fecal stasis. No acute intra-abdominal or intrapelvic process identified.
[2023-08-05 08:29] VITALS: RESP 18
[2023-08-05 08:52] LABS: Appearance,Urine Clear (Clear); Bilirubin,Urine Negative (Negative); Blood,Urine Negative (Negative); Color,Urine Colorless; Glucose,Urine (UA) 2+ (Negative); Ketones,Urine Negative (Negative); Leukocyte Esterase,Urine Moderate (Negative); Mucus,Urine Rare /hpf; Nitrite,Urine Negative (Negative); Protein,Urine Negative (Negative); RBC,Urine 1 /hpf (0-5); Specific Gravity,Urine 1.037 (1.001-1.035); Squamous Epithelial Cell,Urine 2 /hpf (0-4); Urobilinogen,Urine <2.0 mg/dL (<2.0); WBC,Urine 6 /hpf (0-5)
[2023-08-05] MEDS: MAGNESIUM HYDROXIDE 2,400 MG/30 ML CUP PO STA (09:18)
[2023-08-05 09:48] VITALS: BP 175/79; PULSE 71
== END 2023-08-05 09:24 | disposition home or self-care (01) ==
LOC: EC 05:23
DX: K59.00 Constipation, unspecified (principal); Z88.0 Allergy status to penicillin; Z88.5 Allergy status to narcotic agent; Z87.891 Personal history of nicotine dependence
CPT/HCPCS: 36415; 80053; 83605; 83690; 85025; 81001; 74177; 99284; 96374; 96361 ×2; J2405; Q9967

== ENCOUNTER 2024-07-23 19:40 | Observation (INO) | payer MEDICARE ==
[2024-07-23 20:30] LABS: Basophils % (A) 0 %; Eosinophils # (A) 0.2 k/uL (0-0.7); Eosinophils % (A) 2 %; HCT 40.5 % (34.0-46.0); HGB 12.5 gm/dL (11.4-16.0); Hypochromasia Slight; Lymphocytes # (A) 1.5 k/uL (1.0-4.8); Lymphocytes % (A) 24 %; MCH 29.5 pg (25.0-35.0); MCHC 30.9 g/dL (31.0-37.0); MCV 95.4 fL (80.0-100.0); Mean Platelet Volume 8.2; Monocytes # (A) 0.4 k/uL (0-1.0); Monocytes % (A) 7 %; Neutrophils # (A) 4.2 k/uL (1.3-7.7); Neutrophils % (A) 65 %; Platelet Count 219 k/uL (150-450); RBC 4.25 m/uL (3.80-5.40); RDW 13.9 % (11.5-15.5); WBC 6.4 k/uL (3.8-10.6)
[2024-07-23 20:45] LABS: ALT 72 U/L (4-34); AST 48 U/L (14-36); African American GFR (CKD) >90 (>60 ml/min/1.73 sqM); Albumin 4.1 g/dL (3.5-5.0); Alkaline Phosphatase 109 U/L (38-126); Anion Gap 11 mmol/L; Blood Urea Nitrogen 14 mg/dL (7-17); Calcium 9.2 mg/dL (8.4-10.2); Carbon Dioxide 24 mmol/L (22-30); Chloride 101 mmol/L (98-107); Glucose 252 mg/dL (74-99); Magnesium 1.6 mg/dL (1.6-2.3); Non-African American GFR(CKD) >90 (>60 ml/min/1.73 sqM); Potassium 5.2 mmol/L (3.5-5.1); Sodium 136 mmol/L (137-145); Total Bilirubin 1.6 mg/dL (0.2-1.3); Total Protein 6.6 g/dL (6.3-8.2)
[2024-07-23 20:46] LABS: INR 1.1 (<1.2); Partial Thromboplastin Time 20.7 sec (22.0-30.0); Prothrombin Time 11.9 sec (10.0-12.5)
--- NOTE | 2024-07-23 20:49 | XR ---
EXAMINATION TYPE: XR chest 2V DATE OF EXAM: 07/23/2024 CLINICAL INDICATION: Female, 68 years old with history of Chest Pain, TECHNIQUE: Frontal and lateral views of the chest are obtained. COMPARISON: None FINDINGS: There is no focal air space opacity, pleural effusion, or pneumothorax seen. Cardiomegaly is present. The osseous structures are intact. IMPRESSION: Cardiomegaly without acute pulmonary process. [facility], , 07/23/2024 8:47 PM
[2024-07-23] MEDS: MORPHINE SULFATE 4 MG/ML SYRINGE IVP STA (21:03)
[2024-07-23] MEDS: DILTIAZEM 125 MG in SODIUM CHLORIDE 0.9% 100 ML IV SCH (21:27)
[2024-07-23] MEDS: DILTIAZEM DRIP BOLUS FROM BAG 1 MG SOLN IV ONE (21:29)
--- NOTE | 2024-07-23 21:41 | CT ---
EXAMINATION TYPE: CT ChestAbdPelvis w con DATE OF EXAM: 07/23/2024 COMPARISON: CT abdomen and pelvis August 05, 2023 CLINICAL INDICATION: Female, 68 years old with history of Abdominal pain, chest pain, Chills, weaknes s, abdominal pain after lunch, also complaining of bilateral lower rib pain. Iso 300/100ml injected. cant put right arm above head due to rotator cuff, TECHNIQUE: CT scan of the thorax, abdomen and pelvis is performed with IV Contrast, patient injected with 100ml mL of Isovue 300. CT DLP: 1946.7 mGycm. Automated Exposure Control for Dose Reduction was Utilized. FINDINGS: LUNGS: Mild bilateral anterior midlung and lower lung linear scarring and/or atelectasis. Trace right -sided pleural effusion. No pneumothorax seen bilaterally. No suspicious focal consolidation. HEART: Cardiomegaly is present. There is moderate to severe coronary artery calcification. There is moderate left atrial dilatation. There is prominent calcification or surgical change at level of the mitral valve redemonstrated. MEDIASTINUM: There are no new greater than 1 cm hilar or mediastinal lymph nodes. No pericardial ef fusion is seen. LIVER/GB: Edematous wall thickening to the gallbladder. No new biliary dilatation.. PANCREAS: No significant abnormality is seen. SPLEEN: No significant abnormality is seen. ADRENALS: No significant abnormality is seen. KIDNEYS: No significant abnormality is seen. BOWEL: Distal colonic diverticulosis redemonstrated. No CT evidence for acute diverticulitis. No abno rmal small or large bowel dilatation GENITAL ORGANS: Anteverted uterus. Moderate amount of free fluid in the pelvis LYMPH NODES: No greater than 1cm abdominal or pelvic lymph nodes are appreciated. OSSEOUS STRUCTURES: Moderate axial joint space loss and spurring of both hips. Multilevel spurring in the thoracolumbar spine. Multilevel disc space narrowing and vacuum disc phenomenon. OTHER: Moderate peripheral mixed plaque of the abdominal aorta is redemonstrated. IMPRESSION: CT findings are consistent with acute cholecystitis on current study. Advise surgical ev aluation. [facility], , 07/23/2024 9:39 PM
[2024-07-23] MEDS: KETOROLAC 15 MG/ML 1 ML VIAL IVP STA (22:31)
[2024-07-23] MEDS ORDERED: KETOROLAC 15 MG/ML 1 ML VIAL IVP PRN (22:35)
[2024-07-23] MEDS ORDERED: MORPHINE SULFATE 4 MG/ML SYRINGE IVP PRN (22:35)
[2024-07-23] MEDS: metroNIDAZOLE-NS PMX 500 MG in SALINE 1 100ML.BAG IVPB STA (22:59)
[2024-07-23] MEDS: HEPARIN SODIUM 1,000 UN/ML (10ML VL) IV ONE (22:59)
[2024-07-23] MEDS: HEPARIN SOD,PORK IN 0.45% NACL 25,000 UNIT in 0.45% NACL 1 250ML.BAG IV SCH (23:00)
--- NOTE | 2024-07-23 23:37 | ED ---
Chest Pain HPI - General Chief Complaint: Chest Pain Stated Complaint: Chest Pain Time Seen by Provider: 07/23/24 20:31 Source: patient Mode of arrival: ambulatory Limitations: no limitations - History of Present Illness Initial Comments: 68 old female presenting with chief complaint of chest pain. Patient reports that for about a week now she has felt chest discomfort with palpitations and shortness of breath. This is worse on exertion. Patient denies any history of A-fib. She takes no blood thinners. She is also complaining of abdominal pain. Pain is across the upper abdomen. Patient also reports she feels very bloated. No vomiting. She does report some lightheadedness. No fever. No URI-like symptoms. - Related Data Home Medications Medication Instructions Recorded Confirmed Atorvastatin [Lipitor] 20 mg PO HS 08/13/18 05/31/21 lisinopriL 20 mg PO HS 08/13/18 05/31/21 metFORMIN HCL 500 mg PO BID 08/13/18 05/31/21 Previous Rx's Medication Instructions Recorded bisacodyL [Dulcolax] 10 mg PO ONCE PRN #14 tab 08/05/23 Allergies Allergy/AdvReac Type Severity Reaction Status Date / Time hydrocodone [From Vicodin] Allergy Rash/Hives Verified 07/23/24 19:59 Penicillins Allergy Rash/Hives Verified 07/23/24 19:59 Review of Systems ROS Statement: Those systems with pertinent positive or pertinent negative responses have been documented in the HPI. ROS Other: All systems not noted in ROS Statement are negative. Past Medical History Past Medical History: Diabetes Mellitus, Hyperlipidemia, Hypertension Additional Past Medical History / Comment(s): vertigo History of Any Multi-Drug Resistant Organisms: None Reported Past Surgical History: Tubal Ligation Past Psychological History: No Psychological Hx Reported Smoking Status: Former smoker Past Alcohol Use History: None Reported Past Drug Use History: None Reported General Exam Limitations: no limitations General appearance: alert, in no apparent distress Head exam: Present: atraumatic, normocephalic, normal inspection Eye exam: Present: normal appearance, EOMI Neck exam: Present: normal inspection. Absent: meningismus Respiratory exam: Present: normal lung sounds bilaterally. Absent: respiratory distress, wheezes, rales, rhonchi, stridor Cardiovascular Exam: Present: tachycardia, irregular rhythm. Absent: systolic murmur, diastolic murmur, rubs, gallop, clicks Neurological exam: Present: alert, oriented X3 Psychiatric exam: Present: normal affect, normal mood Skin exam: Present: warm Course Vital Signs 07/23/24 07/23/24 07/23/24 19:54 22:19 23:56 Temperature 98.4 F Pulse Rate 133 H 118 H 106 H Respiratory 20 16 16 Rate Blood Pressure 151/89 122/68 133/93 O2 Sat by Pulse 98 97 98 Oximetry 07/24/24 00:54 Temperature Pulse Rate 108 H Respiratory 18 Rate Blood Pressure 137/81 O2 Sat by Pulse 96 Oximetry Chest Pain MDM - MDM Was pt. sent in by a medical professional or institution (, PA, [facility], urgent care, hospital, or senior living...) When possible be specific @ -No Did you speak to anyone other than the patient for history (EMS, parent, family, police, friend...)? What history was obtained from this source @ -No Did you review nursing and triage notes (agree or disagree)? Why? @ -I reviewed and agree with nursing and triage notes Were old charts reviewed (outside hosp., previous admission, EMS record, old EKG, old radiological studies, urgent care reports/EKG's, senior living records)? Report findings @ -No old charts were reviewed Differential Diagnosis (chest pain, altered mental status, abdominal pain women, abdominal pain men, vaginal bleeding, weakness, fever, dyspnea, syncope, headache, dizziness, GI bleed, back pain, seizure, CVA, palpatations, mental health, musculoskeletal)? @ -MDM Differential Chest Pain: Stable Angina, Unstable Angina, STEMI, NSTEMI Aortic Dissection, Pneumothorax, Musculoskeletal, Esophageal Spasm GERD, Cholecystitis, Pancreatitis, Zoster This is not meant to be an all-inclusive list. EKG interpreted by me (3pts min.). @ -EKG shows A-fib with RVR. Ventricular rate 133. QRS 96. QT 289. QTc 367. X-rays interpreted by me (1pt min.). @ -Chest x-ray shows cardiomegaly without acute pulmonary process CT interpreted by me (1pt min.). @ -CT findings are consistent with acute cholecystitis U/S interpreted by me (1pt. min.). @ -None done What testing was considered but not performed or refused? (CT, X-rays, U/S, labs)? Why? @ -None What meds were considered but not given or refused? Why? @ -None Did you discuss the management of the patient with other professionals (professionals i.e. , PA, [employer], lab, RT, psych nurse, socially responsible investment adviser, tap out operator, teacher, driver's license reviewing officer, embedded case manager)? Give summary @ -Spoke with Dr. Cortez regarding acute cholecystitis, agreed to see the patient on consult Attempted to page [facility], no response. Eventually was informed that those patients will then be admitted to [facility]. Spoke with Dr. Maldonado who accepts admission Was smoking cessation discussed for >3mins.? @ -No Was critical care preformed (if so, how long)? @ -No Were there social determinants of health that impacted care today? How? (Homelessness, low income, unemployed, alcoholism, drug addiction, transportation, low edu. Level, literacy, decrease access to med. care, fci, rehab)? @ -No Was there de-escalation of care discussed even if they declined (Discuss DNR or withdrawal of care, Hospice)? DNR status @ -No What co-morbidities impacted this encounter? (DM, HTN, Smoking, COPD, CAD, Cancer, CVA, ARF, Chemo, Hep., AIDS, mental health diagnosis, sleep apnea, morbid obesity)? @ -None Was patient admitted / discharged? Hospital course, mention meds given and route, prescriptions, significant lab abnormalities, going to OR and other pertinent info. @ -68-year-old female presenting with chief complaint of chest pain difficulty breathing and palpitations. Patient is in new onset A-fib with RVR. Patient was started on Cardizem and heparin. Lab work shows no leukocytosis or anemia. Negative troponin. Bilirubin 1.6 AST 48 ALT 72. Potassium 5.2. CT shows acute cholecystitis. Patient is treated with ceftriaxone and metronidazole. Patient will be admitted. She is agreeable with this plan. I discussed this case with my attending Dr. Bear Undiagnosed new problem with uncertain prognosis? @ -No Drug Therapy requiring intensive monitoring for toxicity (Heparin, Nitro, Insulin, Cardizem)? @ -Heparin, Cardizem Were any procedures done? @ -No Diagnosis/symptom? @ -New onset A-fib with RVR, acute cholecystitis Acute, or Chronic, or Acute on Chronic? @ -Acute Uncomplicated (without systemic symptoms) or Complicated (systemic symptoms)? @ -Complicated Side effects of treatment? @ -No Exacerbation, Progression, or Severe Exacerbation? @ -No Poses a threat to life or bodily function? How? (Chest pain, [place], [place], pneumonia, PE, COPD, DKA, ARF, appy, cholecystitis, CVA, Diverticulitis, Homicidal, Suicidal, threat to staff... and all critical care pts) @ -Yes Disposition Clinical Impression: New onset a-fib, Atrial fibrillation with RVR, Acute cholecystitis Disposition: ADMITTED IP TO THIS HOSP Condition: Serious
[2024-07-24] MEDS ORDERED: NALOXONE 0.4 MG/ML 1 ML VIAL IV PRN (00:01)
[2024-07-24] MEDS: SODIUM CHLORIDE 0.9% 1,000 ML IV SCH (00:13)
[2024-07-24 01:44] LABS: Appearance,Urine Clear (Clear); Bilirubin,Urine Negative (Negative); Blood,Urine Negative (Negative); Color,Urine Yellow; Glucose,Urine (UA) Negative (Negative); Ketones,Urine Negative (Negative); Leukocyte Esterase,Urine Negative (Negative); Nitrite,Urine Negative (Negative); PH, Urine 5.5 (5.0-8.0); Protein,Urine Negative (Negative)
[2024-07-24 01:59] LABS: Specific Gravity,Urine >1.050 (1.001-1.035)
[2024-07-24 07:39] LABS: Glucose,Whole Blood 135 mg/dL (70-110)
[2024-07-24 07:56] LABS: INR 1.1 (<1.2); Partial Thromboplastin Time 29.9 sec (22.0-30.0)
[2024-07-24 08:12] LABS: HCT 43.9 % (34.0-46.0); HGB 13.1 gm/dL (11.4-16.0); Hypochromasia Marked; MCH 30.5 pg (25.0-35.0); MCHC 29.9 g/dL (31.0-37.0); Macrocytosis Slight; Mean Platelet Volume 8.7; Platelet Count 213 k/uL (150-450); RBC 4.31 m/uL (3.80-5.40); RDW 13.3 % (11.5-15.5); WBC 6.2 k/uL (3.8-10.6)
[2024-07-24 08:13] LABS: MCV 101.9 fL (80.0-100.0)
[2024-07-24] MEDS: HEPARIN SODIUM 1,000 UN/ML (10ML VL) IV PRN (08:16)
[2024-07-24 08:46] LABS: Eosinophils # (M) 0.06 k/uL (0-0.7); Lymphocytes # (M) 1.24 k/uL (1.0-4.8); Monocytes # (M) 0.37 k/uL (0-1.0); Neutrophils # (M) 4.53 k/uL (1.3-7.7); Neutrophils % (M) 73 %; Nucleated Red Blood Cells 0 /100 WBC (0-0); Total Cells Counted 100
[2024-07-24 08:47] LABS: Poikilocytosis (M) Present
--- NOTE | 2024-07-24 09:40 | P.HPIM ---
History of Present Illness This is a pleasant 68 years old female who presents initially because of chest pain and abdominal pain. Patient states that she has chest pain about 1 week, it is central radiating to the left arm felt like heaviness with no precipitating factors and relieved by medicine as per patient with pain pills. She has little shortness of breath but now feels better. No significant coughing. Also is complaining from abdominal pain on and off for the last 5 to 6 months, it was getting worse recently she points to the middle of her abdomen going across her abdomen but more to the right side. Nonspecific in character with no nausea vomiting. No diarrhea. Also she is complaining of frontal headache about 7/10 on the right side. No weakness numbness tingling or dizziness. No urinary complaint She quit smoking about 5 to 6 years. No alcohol no illicit drugs. She is hemodynamically stable on currently but on admission she was tachycardic with heart rate 133. Labs including CBC, BMP unremarkable. Liver enzymes mildly elevated. INR and troponin were negative Urinalysis showing concentrated sample EKG showing A-fib with a rate of 133 CT of the abdomen and pelvis and chest with contrast showing acute cholecystitis TSH and A1c are pending Review of Systems Review of systems CONSTITUTIONAL: No fever, no malaise, no fatigue. HEENT: No recent visual problems or hearing problems. Denied any sore throat. CARDIOVASCULAR: No orthopnea, PND, no palpitations, no syncope. PULMONARY: no cough, no hemoptysis. GASTROINTESTINAL: No diarrhea, no nausea, no vomiting. Normoactive bowel sounds. NEUROLOGICAL: No headaches, no weakness, no numbness. HEMATOLOGICAL: Denies any bleeding or petechiae. GENITOURINARY: Denies any burning micturition, frequency, or urgency. MUSCULOSKELETAL/RHEUMATOLOGICAL: Denies any joint pain, swelling, or any muscle pain. ENDOCRINE: Denies any polyuria or polydipsia. Past Medical History Past Medical History: Diabetes Mellitus, Hyperlipidemia, Hypertension Additional Past Medical History / Comment(s): vertigo History of Any Multi-Drug Resistant Organisms: None Reported Past Surgical History: Tubal Ligation Past Psychological History: No Psychological Hx Reported Smoking Status: Former smoker Past Alcohol Use History: None Reported Past Drug Use History: None Reported Medications and Allergies Home Medications Medication Instructions Recorded Confirmed Type Atorvastatin [Lipitor] 20 mg PO PC-SUPPER 08/13/18 07/24/24 History lisinopriL 20 mg PO PC-SUPPER 08/13/18 07/24/24 History metFORMIN HCL 500 mg PO PC-TID 08/13/18 07/24/24 History Allergies Allergy/AdvReac Type Severity Reaction Status Date / Time hydrocodone [From Vicodin] Allergy Rash/Hives Verified 07/24/24 07:16 Penicillins Allergy Rash/Hives Verified 07/24/24 07:16 Physical Exam Vitals: Vital Signs Temp Pulse Resp BP Pulse Ox 07/24/24 07:35 91 18 148/95 96 07/24/24 06:15 97.8 F 83 18 149/96 97 07/24/24 04:31 108 H 18 147/97 95 07/24/24 00:54 108 H 18 137/81 96 07/23/24 23:56 106 H 16 133/93 98 07/23/24 22:19 118 H 16 122/68 97 07/23/24 19:54 98.4 F 133 H 20 151/89 98 Intake and Output 07/23/24 07/24/24 07/24/24 22:59 06:59 14:59 Intake Total 92.13 Balance 92.13 Intake: Intake, IV Titration 92.13 Amount Heparin Sod,Pork in 0.45% 92.13 NaCl 25,000 unit In 0.45 % NaCl 1 250ml.bag @ 10. 75 UNITS/KG/HR 9.996 mls/ hr IV .Q24H [facility] Rx#: [id number] Other: Weight 92.986 kg -GENERAL: The patient is alert and oriented x3, not in any acute distress. Well developed, well nourished. Obese HEENT: Pupils are round and equally reacting to light. EOMI. No scleral icterus. No conjunctival pallor. Normocephalic, atraumatic. No pharyngeal erythema. No thyromegaly. CARDIOVASCULAR: S1 and S2 present. No murmurs, rubs, or gallops. PULMONARY: Chest is clear to auscultation, no wheezing , no crackles. -ABDOMEN: Soft, abdominal tenderness in the middle and right side, nondistended, normoactive bowel sounds. No palpable organomegaly. MUSCULOSKELETAL: No joint swelling or deformity. EXTREMITIES: No cyanosis, clubbing, or pedal edema. NEUROLOGICAL: Gross neurological examination did not reveal any focal deficits. SKIN: No rashes. no petechiae. Results CBC & Chem 7: 07/24/24 06:50 07/23/24 20:22 Labs: Abnormal Lab Results - Last 24 Hours (Table) 07/23/24 07/23/24 07/23/24 Range/Units 20:22 20:22 20:22 MCV (80.0-100.0) fL MCHC 30.9 L (31.0-37.0) g/dL APTT 20.7 L (22.0-30.0) sec Sodium 136 L (137-145) mmol/L Potassium 5.2 H (3.5-5.1) mmol/L Glucose 252 H (74-99) mg/dL POC Glucose (mg/dL) (70-110) mg/dL Total Bilirubin 1.6 H (0.2-1.3) mg/dL AST 48 H (14-36) U/L ALT 72 H (4-34) U/L Ur Specific [place] (1.001-1.035) 07/24/24 07/24/24 07/24/24 Range/Units 00:52 06:50 07:37 MCV 101.9 H D (80.0-100.0) fL MCHC 29.9 L (31.0-37.0) g/dL APTT (22.0-30.0) sec Sodium (137-145) mmol/L Potassium (3.5-5.1) mmol/L Glucose (74-99) mg/dL POC Glucose (mg/dL) 135 H (70-110) mg/dL Total Bilirubin (0.2-1.3) mg/dL AST (14-36) U/L ALT (4-34) U/L Ur Specific [place] >1.050 H (1.001-1.035) Assessment and Plan Assessment: A-fib and RVR Chest pain could be related to above Acute cholecystitis Obesity Mild transaminitis Plan: Continue with Cardizem drip Continue with normal saline On heparin drip Cardiac team consult Surgery team consult Keep the patient n.p.o. for bowel rest Pain medication. Continue with IV fluid Labs and medication were reviewed.. Continue same treatment. Continue with symptomatic treatment. Resume home medication. Monitor labs and vitals. DVT and GI prophylaxis. Further recommendations as per clinical course of the patient DVT prophylaxis: Heparin GI Prophylaxis: Pepcid Prognosis is guarded
[2024-07-24] MEDS: FAMOTIDINE 20 MG/2 ML VIAL IV SCH (10:06)
[2024-07-24 10:34] LABS: Glucose,Whole Blood 135 mg/dL (70-110)
--- NOTE | 2024-07-24 14:00 | P.CRDCN ---
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 She presented to the hospital with few days chest discomfort appears to be mostly with exertion and better with resting associated with shortness of breath with exertion as well as associated with heart racing and fluttering. She has been experiencing heart racing/fluttering for the last 6 months but has been not as often as now. Latel y it has been more often and more intense. No presyncope or syncope and no dizziness or lightheadedness. She was found to be in atrial fibrillation with overall RVR. She was started on Cardizem IV with improvement in the heart rate. Also she was started on heparin IV. She underwent a CT scan of the chest which showed heavily calcified coronary arteries but also the CT scan of the abdomen revealed acute cholecystitis currently under investigation by the GI service. The EKG showed atrial fibrillation with diffuse nonspecific ST and T wave abnormalities. The chest x-ray did not show any acute abnormalities. Currently she is asymptomatic. No history of CAD or cardiac arrhythmia or heart failure. The physical examination is remarkable for irregular rhythm with clear breathing sounds bilaterally and no edema was noted in the lower extremities Assessment Chest discomfort appears to be concerning for angina Shortness of breath with exertion Atrial fibrillation with RVR which is a new diagnosis to the patient Multiple comorbid conditions including overweight and diabetes and hypertension and dyslipidemia Plan Acute coronary event was ruled out. The patient has 3 sets of troponin came to be unremarkable Start the patient on beta-anthony Try to wean the patient from Cardizem IV Continue heparin at this point Obtain an echocardiogram with Doppler The cholecystitis to be evaluated by the GI service Follow-up with the patient Past Medical History Past Medical History: Diabetes Mellitus, Hyperlipidemia, Hypertension Additional Past Medical History / Comment(s): vertigo History of Any Multi-Drug Resistant Organisms: None Reported Past Surgical History: Tubal Ligation Past Psychological History: No Psychological Hx Reported Smoking Status: Former smoker Past Alcohol Use History: None Reported Past Drug Use History: None Reported Medications and Allergies Home Medications Medication Instructions Recorded Confirmed Type Atorvastatin [Lipitor] 20 mg PO PC-SUPPER 08/13/18 07/24/24 History lisinopriL 20 mg PO PC-SUPPER 08/13/18 07/24/24 History metFORMIN HCL 500 mg PO PC-TID 08/13/18 07/24/24 History Allergies Allergy/AdvReac Type Severity Reaction Status Date / Time hydrocodone [From Vicodin] Allergy Rash/Hives Verified 07/24/24 07:16 Penicillins Allergy Rash/Hives Verified 07/24/24 07:16 Physical Exam Vitals: Vital Signs Temp Pulse Resp BP Pulse Ox 07/24/24 12:54 88 18 140/85 99 07/24/24 11:27 80 18 97 07/24/24 07:35 91 18 148/95 96 07/24/24 06:15 97.8 F 83 18 149/96 97 07/24/24 04:31 108 H 18 147/97 95 07/24/24 00:54 108 H 18 137/81 96 07/23/24 23:56 106 H 16 133/93 98 07/23/24 22:19 118 H 16 122/68 97 07/23/24 19:54 98.4 F 133 H 20 151/89 98 Intake and Output 07/23/24 07/24/24 07/24/24 22:59 06:59 14:59 Intake Total 92.13 Balance 92.13 Intake: Intake, IV Titration 92.13 Amount Heparin Sod,Pork in 0.45% 92.13 NaCl 25,000 unit In 0.45 % NaCl 1 250ml.bag @ 10. 75 UNITS/KG/HR 9.996 mls/ hr IV .Q24H [facility] Rx#: [id number] Other: Weight 92.986 kg Results 07/24/24 06:50 07/23/24 20:22 Cardiac Enzymes 07/23/24 07/23/24 07/24/24 Range/Units 20:22 20:22 06:50 AST 48 H (14-36) U/L Troponin I <0.012 0.015 (0.000-0.034) ng/mL 07/24/24 Range/Units 11:15 AST (14-36) U/L Troponin I <0.012 (0.000-0.034) ng/mL Coagulation 07/23/24 07/24/24 Range/Units 20:22 06:50 PT 11.9 12.0 (10.0-12.5) sec APTT 20.7 L 29.9 (22.0-30.0) sec CBC 07/23/24 07/24/24 Range/Units 20:22 06:50 WBC 6.4 6.2 (3.8-10.6) k/uL RBC 4.25 4.31 (3.80-5.40) m/uL Hgb 12.5 13.1 (11.4-16.0) gm/dL Hct 40.5 43.9 (34.0-46.0) % Plt Count 219 213 (150-450) k/uL Comprehensive Metabolic Panel 07/23/24 Range/Units 20:22 Sodium 136 L (137-145) mmol/L Potassium 5.2 H (3.5-5.1) mmol/L Chloride 101 (98-107) mmol/L Carbon Dioxide 24 (22-30) mmol/L BUN 14 (7-17) mg/dL Creatinine 0.61 (0.52-1.04) mg/dL Glucose 252 H (74-99) mg/dL Calcium 9.2 (8.4-10.2) mg/dL AST 48 H (14-36) U/L ALT 72 H (4-34) U/L Alkaline Phosphatase 109 (38-126) U/L Total Protein 6.6 (6.3-8.2) g/dL Albumin 4.1 (3.5-5.0) g/dL Current Medications Generic Name Dose Route Start Last Admin Trade Name Freq PRN Reason Stop Dose Admin Atorvastatin Calcium 20 mg 07/24/24 18:30 Atorvastatin 20 Mg Tab PO PC-SUPPER [facility] Famotidine 20 mg 07/24/24 09:00 07/24/24 11:45 Famotidine 20 Mg/2 Ml Vial IV 20 mg Q12HR [facility] Administration Heparin Sodium (Porcine) 0 unit 07/23/24 22:34 07/24/24 08:16 Heparin Sodium 1,000 Un/Ml (10ml Vl) IV 4,000 unit PER PROTOCOL PRN Administration Low PTT Protocol Diltiazem HCl 125 mg/ Sodium 125 mls @ 5 mls/hr 07/23/24 21:00 07/23/24 21:27 Chloride IV 5 mg/hr .Q24H [facility] 5 mls/hr Administration 5 MG/HR Heparin Sodium/Sodium Chloride 250 mls @ 9.996 mls/hr 07/23/24 22:45 07/24/24 08:13 25,000 unit/ Sodium Chloride IV 13.75 units/kg/hr .Q24H [facility] 12.786 mls/hr Titration Protocol 10.75 UNITS/KG/HR Sodium Chloride 1,000 mls @ 75 mls/hr 07/24/24 00:15 07/24/24 00:13 Saline 0.9% IV 75 mls/hr .[id number] [facility] Administration Ketorolac Tromethamine 15 mg 07/23/24 22:35 Ketorolac 15 Mg/Ml 1 Ml Vial IVP 07/28/24 22:35 Q6HR PRN Pain Lisinopril 20 mg 07/24/24 18:30 Lisinopril 20 Mg Tab PO PC-SUPPER [facility] Metoprolol Succinate 25 mg 07/25/24 09:00 Metoprolol Succinate (Er) 25 Mg Tab.Er.24h PO DAILY [facility] Morphine Sulfate 4 mg 07/23/24 22:35 Morphine Sulfate 4 Mg/Ml Syringe IVP Q4HR PRN Pain Naloxone HCl 0.2 mg 07/24/24 00:01 Naloxone 0.4 Mg/Ml 1 Ml Vial IV Q2M PRN Opioid Reversal Intake and Output 07/23/24 07/24/24 07/24/24 22:59 06:59 14:59 Intake Total 92.13 Balance 92.13 Intake: Intake, IV Titration 92.13 Amount Heparin Sod,Pork in 0.45% 92.13 NaCl 25,000 unit In 0.45 % NaCl 1 250ml.bag @ 10. 75 UNITS/KG/HR 9.996 mls/ hr IV .Q24H [facility] Rx#: [id number] Other: Weight 92.986 kg 07/24/24 06:50 07/23/24 20:22
[2024-07-24 17:25] LABS: Glucose,Whole Blood 132 mg/dL (70-110)
--- NOTE | 2024-07-24 17:30 | P.GSCN ---
History of Present Illness Consult date: 07/24/24 History of present illness: CHIEF COMPLAINT: Cholecystitis HISTORY OF PRESENT ILLNESS: The patient is a 68 year old female who presented with atypical chest pain. Workup demonstrated a new onset atrial fibrillation rapid ventricular response including presumed cholecystitis. Patient was the ER at the time of my assessment. She reports feeling much better. She denies any abdominal pain. She reports hunger. No recurrent nausea and vomiting. She is currently on heparin drip. PAST MEDICAL HISTORY: See list and reviewed PAST SURGICAL HISTORY: See list and reviewed MEDICATIONS: See list and reviewed ALLERGIES: See list and reviewed SOCIAL HISTORY: See list and reviewed FAMILY HISTORY: See list and reviewed REVIEW OF ORGAN SYSTEMS: CONSTITUTIONAL: No fevers or chills. Morbid obesity, BMI 35.2. EYES: Denies any trouble with vision. No glasses. HEENT: No difficulties with hearing. No nosebleeds. No difficulty swallowing. RESPIRATORY: Denies pneumonia. Denies any troubles with breathing or dyspnea on exertion. CARDIOVASCULAR: Has hypertensive heart disease. New onset atrial fibrillation. Has hyperlipidemia. GASTROINTESTINAL: Denies fatty food intolerance. Denies change in bowel habits and gas bloat. GENITOURINARY: Denies any blood in urine or increased urinary frequency. NEUROLOGICAL: Denies any numbness or tingling along the distal extremities. No seizure disorders or headaches. MUSCULOSKELETAL: Denies any back pain, stiffness or joint arthritis. SKIN: No current skin cancer. No rash. PSYCHIATRIC: Denies current depression or suicidal thoughts. ENDOCRINE: Denies current thyroid disorders. Has diabetes type 2. HEME/LYMPHATIC: Denies any lumps and bumps around the neck. No recent deep venous thrombosis. ALLERGY/IMMUNOLOGY: No immunoglobulin therapy. No immune deficiencies. BREAST: Denies current breast lumps, pain or nipple discharge. PHYSICAL EXAM: VITALS: Reviewed CONSTITUTIONAL: Well developed and in no acute distress. EYES: Conjuctivae without sclera icterus. Extraocular movements grossly intact . HEAD, EARS, NOSE, THROAT: Moist buccal mucosa. Head is atraumatic, normocephalic. Hears conversational speech. No nasal drainage. NECK: Supple. No JV distention. No thyroidomegaly. RESPIRATORY: Non-labored respirations and equal bilateral excursions. No gross wheezes. CARDIOVASCULAR: Palpable 2+ radial pulses. ABDOMEN: No peritonitis. LYMPH: No neck lymphadenopathy. MUSCULOSKELETAL: No clubbing cyanosis or edema SKIN: Warm and well perfused with good skin turgor. NEUROLOGIC: Cranial nerves II through XII grossly intact. No focal or lateralizing signs. PSYCH: Appropriate affect. Alert and oriented to person, place and time. Displays appropriate insight. CLINCAL LABS: Reviewed. WBC on admission normal. No left shift. Total bilirubin and LFTs elevated. Blood sugars 252. IMAGING: Independently reviewed. CT of the abdomen pelvis independently viewed by me without any clear evidence of gallstones. No inflammatory changes identified along the gallbladder. This is my independent interpretation. RADIOLOGY: Report reviewed CT demonstrates edematous wall thickening of the gallbladder no findings of acute cholecystitis. RECORDS: previous old records reviewed with CT scan from July 2023 demonstrate moderate stool including diverticulosis. At that time, no inflammatory changes along the epigastrium. ASSESSMENT: 1. Atypical chest pain 2. New onset atrial fibrillation rapid ventricular response 3. CT finding for acute cholecystitis 4. Morbid obesity to excess calories, BMI 35.2 5. Diabetes type 2 6. Hypertensive heart disease PLAN: 1. Acute cholecystitis on CT scan not ideal given the clinical picture and would recommend a HIDA scan. 2. Additionally, patient reports she is clinically doing much better. With her new onset atrial fibrillation, okay for heparinization drip 3. May have low fat diet in interim 4. At this time, no acute surgical invention due to recent new onset atrial fibrillation and heparin. ADVANCE DIRECTIVE: CODE STATUS in chart Thank you for this kind consultation. Dictation was produced using [employer] dictation software. Please excuse any grammatical, word or spelling errors. Past Medical History Past Medical History: Diabetes Mellitus, Hyperlipidemia, Hypertension Additional Past Medical History / Comment(s): vertigo History of Any Multi-Drug Resistant Organisms: None Reported Past Surgical History: Tubal Ligation Past Psychological History: No Psychological Hx Reported Smoking Status: Former smoker Past Alcohol Use History: None Reported Past Drug Use History: None Reported Medications and Allergies Home Medications Medication Instructions Recorded Confirmed Type Atorvastatin [Lipitor] 20 mg PO PC-SUPPER 08/13/18 07/24/24 History lisinopriL 20 mg PO PC-SUPPER 08/13/18 07/24/24 History metFORMIN HCL 500 mg PO PC-TID 08/13/18 07/24/24 History Allergies Allergy/AdvReac Type Severity Reaction Status Date / Time hydrocodone [From Vicodin] Allergy Rash/Hives Verified 07/24/24 07:16 Penicillins Allergy Rash/Hives Verified 07/24/24 07:16 Surgical - Exam Vital Signs Temp Pulse Resp BP Pulse Ox 98.4 F 133 H 20 151/89 98 07/23/24 19:54 07/23/24 19:54 07/23/24 19:54 07/23/24 19:54 07/23/24 19:54 Results - Labs 07/24/24 06:50 07/23/24 20:22 Abnormal Lab Results - Last 24 Hours (Table) 07/23/24 07/23/24 07/23/24 Range/Units 20:22 20:22 20:22 MCV (80.0-100.0) fL MCHC 30.9 L (31.0-37.0) g/dL APTT 20.7 L (22.0-30.0) sec Sodium 136 L (137-145) mmol/L Potassium 5.2 H (3.5-5.1) mmol/L Glucose 252 H (74-99) mg/dL POC Glucose (mg/dL) (70-110) mg/dL Total Bilirubin 1.6 H (0.2-1.3) mg/dL AST 48 H (14-36) U/L ALT 72 H (4-34) U/L Ur Specific [place] (1.001-1.035) 07/24/24 07/24/24 07/24/24 Range/Units 00:52 06:50 07:37 MCV 101.9 H D (80.0-100.0) fL MCHC 29.9 L (31.0-37.0) g/dL APTT (22.0-30.0) sec Sodium (137-145) mmol/L Potassium (3.5-5.1) mmol/L Glucose (74-99) mg/dL POC Glucose (mg/dL) 135 H (70-110) mg/dL Total Bilirubin (0.2-1.3) mg/dL AST (14-36) U/L ALT (4-34) U/L Ur Specific [place] >1.050 H (1.001-1.035) 07/24/24 07/24/24 Range/Units 10:32 14:14 MCV (80.0-100.0) fL MCHC (31.0-37.0) g/dL APTT 60.3 H (22.0-30.0) sec Sodium (137-145) mmol/L Potassium (3.5-5.1) mmol/L Glucose (74-99) mg/dL POC Glucose (mg/dL) 135 H (70-110) mg/dL Total Bilirubin (0.2-1.3) mg/dL AST (14-36) U/L ALT (4-34) U/L Ur Specific [place] (1.001-1.035) Diabetes panel 07/23/24 Range/Units 20:22 Sodium 136 L (137-145) mmol/L Potassium 5.2 H (3.5-5.1) mmol/L Chloride 101 (98-107) mmol/L Carbon Dioxide 24 (22-30) mmol/L BUN 14 (7-17) mg/dL Creatinine 0.61 (0.52-1.04) mg/dL Glucose 252 H (74-99) mg/dL Calcium 9.2 (8.4-10.2) mg/dL AST 48 H (14-36) U/L ALT 72 H (4-34) U/L Alkaline Phosphatase 109 (38-126) U/L Total Protein 6.6 (6.3-8.2) g/dL Albumin 4.1 (3.5-5.0) g/dL Thyroid panel 07/24/24 Range/Units 06:50 TSH 3.720 (0.465-4.680) mIU/L Calcium panel 07/23/24 Range/Units 20:22 Calcium 9.2 (8.4-10.2) mg/dL Albumin 4.1 (3.5-5.0) g/dL Pituitary panel 07/23/24 07/24/24 Range/Units 20:22 06:50 Sodium 136 L (137-145) mmol/L Potassium 5.2 H (3.5-5.1) mmol/L Chloride 101 (98-107) mmol/L Carbon Dioxide 24 (22-30) mmol/L BUN 14 (7-17) mg/dL Creatinine 0.61 (0.52-1.04) mg/dL Glucose 252 H (74-99) mg/dL Calcium 9.2 (8.4-10.2) mg/dL TSH 3.720 (0.465-4.680) mIU/L Adrenal panel 07/23/24 Range/Units 20:22 Sodium 136 L (137-145) mmol/L Potassium 5.2 H (3.5-5.1) mmol/L Chloride 101 (98-107) mmol/L Carbon Dioxide 24 (22-30) mmol/L BUN 14 (7-17) mg/dL Creatinine 0.61 (0.52-1.04) mg/dL Glucose 252 H (74-99) mg/dL Calcium 9.2 (8.4-10.2) mg/dL Total Bilirubin 1.6 H (0.2-1.3) mg/dL AST 48 H (14-36) U/L ALT 72 H (4-34) U/L Alkaline Phosphatase 109 (38-126) U/L Total Protein 6.6 (6.3-8.2) g/dL Albumin 4.1 (3.5-5.0) g/dL
[2024-07-24] MEDS: lisinopriL 20 MG TAB PO SCH (18:35)
[2024-07-24] MEDS: ATORVASTATIN 20 MG TAB PO SCH (18:35)
[2024-07-24 19:51] LABS: Glucose,Whole Blood 270 mg/dL (70-110)
[2024-07-24] MEDS ORDERED: DEXTROSE 50% SYRINGE 50 ML IVP PRN ×2 (22:06)
[2024-07-25 05:10] LABS: Glucose,Whole Blood 152 mg/dL (70-110)
[2024-07-25] MEDS: INSULIN LISPRO (HumaLOG) 100 UNIT/ML 10 mL VL SQ SCH (06:29)
[2024-07-25 08:22] LABS: Basophils # (A) 0.07 X 10*3/uL (0.00-0.10); Basophils % (A) 1.3 %; Eosinophils # (A) 0.21 X 10*3/uL (0.04-0.35); Eosinophils % (A) 3.9 %; HCT 38.4 % (37.2-46.3); HGB 12.2 g/dL (12.0-15.0); Lymphocytes # (A) 1.46 X 10*3/uL (0.90-5.00); MCH 30.3 pg (27.0-32.0); MCHC 31.8 g/dL (32.0-37.0); MCV 95.5 FL (80.0-97.0); Mean Platelet Volume 10.8 FL (9.5-12.2); Monocytes # (A) 0.56 X 10*3/uL (0.20-1.00); Monocytes % (A) 10.4 %; NRBC Per 100 WBC 0 X 10*3/uL (0.00-0.01); Neutrophils # (A) 3.09 X 10*3/uL (1.80-7.70); Neutrophils % (A) 57.2 %; Platelet Count 210 X 10*3/uL (140-440); RBC 4.02 X 10*6/uL (4.10-5.20); RDW 13.6 % (11.5-14.5)
[2024-07-25] MEDS: METOPROLOL SUCCINATE (ER) 50 MG TAB.ER.24H PO SCH (08:44)
[2024-07-25] MEDS ORDERED: METOPROLOL SUCCINATE (ER) 25 MG TAB.ER.24H PO SCH (09:00)
[2024-07-25 10:12] LABS: ALT 67 U/L (8-44); AST 43 U/L (13-35); Albumin 4.1 g/dL (3.8-4.9); Albumin/Globulin Ratio 1.71 Ratio (1.60-3.17); Alkaline Phosphatase 120 U/L (41-126); BUN/Creat Ratio 18.12 Ratio (12.00-20.00); Blood Urea Nitrogen 14.5 mg/dL (9.0-27.0); Calcium 8.9 mg/dL (8.7-10.3); Carbon Dioxide 19.4 mmol/L (21.6-31.8); Chloride 105 mmol/L (96-109); Globulin 2.4 g/dL (1.6-3.3); Glucose 157 mg/dL (70-110); Potassium 4.3 mmol/L (3.5-5.5); Sodium 140 mmol/L (135-145); Total Bilirubin 1.4 mg/dL (0.3-1.2); Total Protein 6.5 g/dL (6.2-8.2)
--- NOTE | 2024-07-25 10:26 | P.PN ---
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 She presented to the hospital with few days chest discomfort appears to be mostly with exertion and better with res ting associated with shortness of breath with exertion as well as associated with heart racing and fluttering. She has been experiencing heart racing/fluttering for the last 6 months but has been not as often as now. Lately it has been more often and more intense. No presyncope or syncope and no dizziness or lightheadedness. She was found to be in atrial fibrillation with overall RVR. She was started on Cardizem IV with improvement in the heart rate. Also she was started on heparin IV. She underwent a CT scan of the chest which showed heavily calcified coronary arteries but also the CT scan of the abdomen revealed acute cholecystitis currently under investigation by the GI service. T he EKG showed atrial fibrillation with diffuse nonspecific ST and T wave abnormalities. The chest x-ray did not show any acute abnormalities. Currently she is asymptomatic. No history of CAD or cardiac arrhythmia or heart failure. The physical examination is remarkable for irregular rhythm with clear breathing sounds bilaterally and no edema was noted in the lower extremities 07/25/2024 Patient examined this morning at the bedside. Patient currently denies chest pain or pressure. She denies shortness of breath. She continues to report abdominal discomfort. Patient is currently on IV heparin and IV Cardizem at 5 mg an hour. Telemetry reveals atrial fibrillation with a heart rate in the 80s. PHYSICAL EXAM: VITAL SIGNS: Reviewed. GENERAL: Well-developed in no acute distress. NECK: Supple. No JVD or thyromegaly LUNGS: Respirations even and unlabored. Lungs essentially clear to auscultation bilaterally. HEART: Irregular rate and rhythm. S1 and S2 heard. EXTREMITIES: Normal range of motion. No clubbing or cyanosis. Peripheral pulses intact. No lower extremity edema ASSESSMENT: New onset atrial fibrillation with RVR, currently rate controlled Acute cholecystitis Hypertension Hyperlipidemia Diabetes Obesity: BMI 35.2 PLAN: TSH checked and unremarkable Increase metoprolol succinate to 50 mg daily Discontinue IV Cardizem 2D echo ordered. Await results Case discussed with Dr. Cortez. Possible surgical intervention pending results of HIDA scan. We will continue IV heparin at this time. If no surgical intervention is planned, transition to oral anticoagulation Further recommendations pending patient course Nurse practitioner note has been reviewed by physician. Signing provider agrees with the documented findings, assessment, and plan of care documented by [employer] as a scribe. Objective - Vital Signs Vital signs: Vital Signs Temp 97.5 F L 07/25/24 07:42 Pulse 74 07/25/24 08:51 Resp 16 07/25/24 07:42 BP 117/70 07/25/24 07:42 Pulse Ox 98 07/25/24 07:42 FiO2 Intake & Output 07/24/24 07/25/24 07/25/24 18:59 06:59 18:59 Intake Total 788.297 149.596 165.579 Balance 788.297 149.596 165.579 Weight 92.986 kg Intake: Intake, IV Titration 198.297 149.596 165.579 Amount Diltiazem 125 mg In 106.167 Sodium Chloride 0.9% 100 ml @ 5 MG/HR 5 mls/hr IV .Q24H [facility] Rx#:[id number] Heparin Sod,Pork in 0.45% 92.13 149.596 165.579 NaCl 25,000 unit In 0.45 % NaCl 1 250ml.bag @ 10. 75 UNITS/KG/HR 9.996 mls/ hr IV .Q24H [facility] Rx#: [id number] Oral 590 Other: Voiding Method Toilet Toilet # Voids 3 - Labs CBC & Chem 7: 07/25/24 05:49 07/25/24 05:49 Labs: Abnormal Lab Results - Last 24 Hours (Table) 07/24/24 07/24/24 07/24/24 Range/Units 10:32 14:14 17:24 RBC (4.10-5.20) X 10*6/uL MCHC (32.0-37.0) g/dL APTT 60.3 H (22.0-30.0) sec Carbon Dioxide (21.6-31.8) mmol/L Anion Gap (4.00-12.00) mmol/L Glucose (70-110) mg/dL POC Glucose (mg/dL) 135 H 132 H (70-110) mg/dL Hemoglobin A1c (<=6.0) % Total Bilirubin (0.3-1.2) mg/dL AST (13-35) U/L ALT (8-44) U/L 07/24/24 07/25/24 07/25/24 Range/Units 19:50 05:08 05:49 RBC (4.10-5.20) X 10*6/uL MCHC (32.0-37.0) g/dL APTT 53.6 H (22.0-30.0) sec Carbon Dioxide (21.6-31.8) mmol/L Anion Gap (4.00-12.00) mmol/L Glucose (70-110) mg/dL POC Glucose (mg/dL) 270 H 152 H (70-110) mg/dL Hemoglobin A1c (<=6.0) % Total Bilirubin (0.3-1.2) mg/dL AST (13-35) U/L ALT (8-44) U/L 07/25/24 07/25/24 07/25/24 Range/Units 05:49 05:49 05:49 RBC 4.02 L (4.10-5.20) X 10*6/uL MCHC 31.8 L (32.0-37.0) g/dL APTT (22.0-30.0) sec Carbon Dioxide 19.4 L (21.6-31.8) mmol/L Anion Gap 15.60 H (4.00-12.00) mmol/L Glucose 157 H (70-110) mg/dL POC Glucose (mg/dL) (70-110) mg/dL Hemoglobin A1c 9.2 H (<=6.0) % Total Bilirubin 1.4 H (0.3-1.2) mg/dL AST 43 H (13-35) U/L ALT 67 H (8-44) U/L Microbiology - Last 24 Hours (Table) 07/23/24 22:14 Blood Culture - Preliminary Blood
[2024-07-25 12:28] LABS: Glucose,Whole Blood 243 mg/dL (70-110)
--- NOTE | 2024-07-25 12:36 | P.PN ---
Subjective Progress Note Date: 07/25/24 CHIEF COMPLAINT: Cholecystitis HISTORY OF PRESENT ILLNESS: The patient is a 68 year old female who presented with atypical chest pain. Initial CT scan demonstrated acute cholecystitis. Patient reports she was feeling well since yesterday. HIDA scan was ordered. She still reports doing well without any chest or abdominal pain today. She is currently on heparin drip. She has been cleared by cardiology. REVIEW OF ORGAN SYSTEMS: No fevers or chills. No shortness of breath. PHYSICAL EXAM: VITALS: Reviewed CONSTITUTIONAL: Well developed and in no acute distress. EYES: Conjuctivae without sclera icterus. Extraocular movements grossly intact. HEAD, EARS, NOSE, THROAT: Moist buccal mucosa. Head is atraumatic, normocephalic. Hears conversational speech. No nasal drainage. RESPIRATORY: Non-labored respirations and equal bilateral excursions. No gross wheezes. CARDIOVASCULAR: Palpable 2+ radial pulses. ABDOMEN: No peritonitis. Obese. MUSCULOSKELETAL: No clubbing cyanosis or edema SKIN: Warm and well perfused with good skin turgor. NEUROLOGIC: Cranial nerves II through XII grossly intact. No focal or lateralizing signs. PSYCH: Appropriate affect. Alert and oriented to person, place and time. Displays appropriate insight. CLINCAL LABS: Reviewed. WBC normal. IMAGING: HIDA scan independent reviewed demonstrates no evidence of acute cholecystitis ASSESSMENT: 1. Atypical chest pain 2. New onset atrial fibrillation rapid ventricular response 3. CT finding for acute cholecystitis 4. Morbid obesity to excess calories, BMI 35.2 5. Diabetes type 2 6. Hypertensive heart disease PLAN: 1. Patient clinically stable for discharge from surgery standpoint. 2. May start Eliquis for discharge. 3. Follow-up as outpatient as needed. Objective - Vital Signs Vital signs: Vital Signs Temp 97.5 F L 07/25/24 07:42 Pulse 74 07/25/24 08:51 Resp 16 07/25/24 08:51 BP 117/70 07/25/24 07:42 Pulse Ox 98 07/25/24 07:42 FiO2 Intake & Output 07/24/24 07/25/24 07/25/24 18:59 06:59 18:59 Intake Total 788.297 149.596 165.579 Balance 788.297 149.596 165.579 Weight 92.986 kg Intake: Intake, IV Titration 198.297 149.596 165.579 Amount Diltiazem 125 mg In 106.167 Sodium Chloride 0.9% 100 ml @ 5 MG/HR 5 mls/hr IV .Q24H [facility] Rx#:[id number] Heparin Sod,Pork in 0.45% 92.13 149.596 165.579 NaCl 25,000 unit In 0.45 % NaCl 1 250ml.bag @ 10. 75 UNITS/KG/HR 9.996 mls/ hr IV .Q24H [facility] Rx#: [id number] Oral 590 Other: Voiding Method Toilet Toilet Toilet # Voids 3 - Labs CBC & Chem 7: 07/25/24 05:49 07/25/24 05:49 Labs: Abnormal Lab Results - Last 24 Hours (Table) 07/24/24 07/24/24 07/24/24 Range/Units 14:14 17:24 19:50 RBC (4.10-5.20) X 10*6/uL MCHC (32.0-37.0) g/dL APTT 60.3 H (22.0-30.0) sec Carbon Dioxide (21.6-31.8) mmol/L Anion Gap (4.00-12.00) mmol/L Glucose (70-110) mg/dL POC Glucose (mg/dL) 132 H 270 H (70-110) mg/dL Hemoglobin A1c (<=6.0) % Total Bilirubin (0.3-1.2) mg/dL AST (13-35) U/L ALT (8-44) U/L 07/25/24 07/25/24 07/25/24 Range/Units 05:08 05:49 05:49 RBC 4.02 L (4.10-5.20) X 10*6/uL MCHC 31.8 L (32.0-37.0) g/dL APTT 53.6 H (22.0-30.0) sec Carbon Dioxide (21.6-31.8) mmol/L Anion Gap (4.00-12.00) mmol/L Glucose (70-110) mg/dL POC Glucose (mg/dL) 152 H (70-110) mg/dL Hemoglobin A1c (<=6.0) % Total Bilirubin (0.3-1.2) mg/dL AST (13-35) U/L ALT (8-44) U/L 07/25/24 07/25/24 07/25/24 Range/Units 05:49 05:49 12:27 RBC (4.10-5.20) X 10*6/uL MCHC (32.0-37.0) g/dL APTT (22.0-30.0) sec Carbon Dioxide 19.4 L (21.6-31.8) mmol/L Anion Gap 15.60 H (4.00-12.00) mmol/L Glucose 157 H (70-110) mg/dL POC Glucose (mg/dL) 243 H (70-110) mg/dL Hemoglobin A1c 9.2 H (<=6.0) % Total Bilirubin 1.4 H (0.3-1.2) mg/dL AST 43 H (13-35) U/L ALT 67 H (8-44) U/L Microbiology - Last 24 Hours (Table) 07/23/24 22:14 Blood Culture - Preliminary Blood
[2024-07-25] MEDS: APIXABAN 5 MG TAB PO SCH (12:37)
--- NOTE | 2024-07-25 12:52 | NM ---
EXAMINATION TYPE: NM hepatobiliary wo EF DATE OF EXAM: 07/25/2024 COMPARISON: CT 2 days earlier CLINICAL INDICATION: Female, 68 years old with history of Abdominal pain, epigastric; TECHNIQUE: After the intravenous administration of 4.6 mCi Tc 99m Mebrofenin hepatobiliary scintigrap hy is performed. Immediate images post injection. FINDINGS: There is poor initial accumulation of tracer by the liver. The gallbladder is visualized within 20 minutes. The small bowel activity is noted within 30 minutes. IMPRESSION: Therefore there is no scintigraphic evidence of cystic or common bile duct obstruction to suggest acute cholecystitis. [facility] Sal[facility] Slade, , 07/25/2024 12:49 PM
[2024-07-25 17:18] LABS: Glucose,Whole Blood 209 mg/dL (70-110)
--- NOTE | 2024-07-25 18:40 | CA ---
Transthoracic Echo Report Name: Alexa Ross Age: 68 Gender: F : 1955 Exam Date: 07/25/2024 13:26 Exam Location: [facility] Ht (in): 64 Wt (lb): 205 Ordering Physician: Alphonse Kenney MD ([id number]) Attending/Referring Phys: Director Experimental Medicine Rosa Maria Baker RDCS Procedure CPT: Indications: a. fib Cardiac Hx: Technical Quality: Good Contrast 1: Total Dose (mL): Contrast 2: Total Dose (mL): MEASUREMENTS (Male / Female) Normal Values 2D ECHO LV Diastolic Diameter PLAX 4.9 cm 4.2 - 5.9 / 3.9 - 5.3 cm LV Systolic Diameter PLAX 3.7 cm IVS Diastolic Thickness 1.1 cm 0.6 - 1.0 / 0.6 - 0.9 cm LVPW Diastolic Thickness 1.1 cm 0.6 - 1.0 / 0.6 - 0.9 cm LV Relative Wall Thickness 0.4 RV Internal Dim ED PLAX 3.2 cm LVOT Diameter 1.4 cm LA Systolic Diameter LX 4.0 cm 3.0 - 4.0 / 2.7 - 3.8 cm LV Diastolic Volume MOD BP 50.6 cm??? 67 - 155 / 56 - 104 cm??? LV Systolic Volume MOD BP 23.6 cm??? 22 - 58 / 19 - 49 cm??? LV Ejection Fraction MOD BP 53.5 % >= 55 % LV Cardiac Index MOD BP 1205.2 cm???/min???m??? LV Diastolic Volume MOD 4C 61.0 cm??? LV Systolic Volume MOD 4C 25.6 cm??? LV Ejection Fraction MOD 4C 58.0 % LV Cardiac Index MOD 4C 1575.3 cm???/min???m??? LV Diastolic Length 4C 6.2 cm LV Systolic Length 4C 5.4 cm LV Diastolic Volume MOD 2C 40.0 cm??? LV Systolic Volume MOD 2C 21.0 cm??? LV Ejection Fraction MOD 2C 47.7 % LV Cardiac Index MOD 2C 849.2 cm???/min???m??? LV Diastolic Length 2C 5.8 cm LV Systolic Length 2C 5.2 cm LA Volume 58.6 cm??? 18 - 58 / 22 - 52 cm??? LA Volume Index 28.1 cm???/m??? 16 - 28 cm???/m??? DOPPLER MV Peak Velocity 142.4 cm/s MV Peak Gradient 8.1 mmHg MV Mean Velocity 84.7 cm/s MV Mean Gradient 4.0 mmHg MV Velocity Time Integral 22.2 cm MV Area PHT 5.4 cm??? MR Peak Velocity 432.4 cm/s MR Peak Gradient 74.8 mmHg Mitral E Point Velocity 151.9 cm/s Mitral A Point Velocity 26.8 cm/s Mitral E to A Ratio 5.7 MV Deceleration Time 144.0 ms TR Peak Velocity 240.2 cm/s TR Peak Gradient 23.1 mmHg Right Atrial Pressure 10.0 mmHg Pulmonary Artery Systolic Pressu 33.1 mmHg Right Ventricular Systolic Press 33.1 mmHg FINDINGS Left Ventricle Left ventricular ejection fraction is estimated at 45-50 %. Mildly increased septal wall thickness. Mildly increased posterior wall thickness. Mildly decreased left ventricular ejection fraction. Hypokinetic inferoseptal wall. Right Ventricle Severe right ventricular dilatation. Right ventricular systolic pressure within normal limits. Right Atrium Mild right atrial dilatation. Left Atrium Mildly increased left atrial diameter. Mildly increased left atrial volume. Mitral Valve Mitral annular calcification. Mild mitral stenosis. Mild to moderate mitral regurgitation. Aortic Valve Trileaflet aortic valve. No aortic valve stenosis or regurgitation. Tricuspid Valve Structurally normal tricuspid valve. No tricuspid stenosis. Mild tricuspid regurgitation. Pulmonic Valve Structurally normal pulmonic valve. No pulmonic regurgitation. Mild pulmonic regurgitation. Pericardium No pericardial effusion. No pleural effusion. Aorta Normal size aortic root and proximal ascending aorta. CONCLUSIONS Technically difficult study for interpretation Mildly impaired LV function with EF between 45 to 50% Aortic sclerosis Mild to moderate mitral regurgitation Previewed by: Dr. Alphonse Kenney MD (Electronically Signed) Final Date: 25 July 2024 18:39
[2024-07-25 20:18] LABS: Glucose,Whole Blood 178 mg/dL (70-110)
--- NOTE | 2024-07-25 21:49 | P.PN ---
Subjective This is a pleasant 68 years old female who presents initially because of chest pain and abdominal pain. Patient states that she has chest pain about 1 week, it is central radiating to the left arm felt like heaviness with no precipitating factors and relieved by medicine as per patient with pain pills. She has little shortness of breath but now feels better. No significant coughing. Also is complaining from abdominal pain on and off for the last 5 to 6 months, it was getting worse recently she points to the middle of her abdomen going across her abdomen but more to the right side. Nonspecific in character with no nausea vomiting. No diarrhea. Also she is complaining of frontal headache about 7/10 on the right side. No weakness numbness tingling or dizziness. No urinary complaint She quit smoking about 5 to 6 years. No alcohol no illicit drugs. She is hemodynamically stable on currently but on admission she was tachycardic with heart rate 133. Labs including CBC, BMP unremarkable. Liver enzymes mildly elevated. INR and troponin were negative Urinalysis showing concentrated sample EKG showing A-fib with a rate of 133 CT of the abdomen and pelvis and chest with contrast showing acute cholecystitis TSH and A1c are pending 07/25 Patient is awake and alert sitting in chair outside of bed, she is asymptomatic no chest pain no abdominal pain HIDA scan reviewed, symptoms improved and patient was cleared for discharge by surgery team and also cleared to start Eliquis which was resumed Echocardiogram showing mild cardiomyopathy with ejection fraction 45 to 40% with mild to moderate mitral regurgitation Her hemoglobin A1c is 9.2%, patient was taking metformin 500 mg twice daily we will going to increase it to metformin 850 mg 3 times daily and add Farxiga 10 mg daily tomorrow TSH is normal Possible discharge in 24 hours Objective - Vital Signs Vital signs: Vital Signs Temp 98 F 07/25/24 14:20 Pulse 86 07/25/24 14:20 Resp 16 07/25/24 14:20 BP 132/91 07/25/24 14:20 Pulse Ox 96 07/25/24 14:20 FiO2 Intake & Output 07/24/24 07/25/24 07/25/24 18:59 06:59 18:59 Intake Total 788.297 149.596 336.641 Balance 788.297 149.596 336.641 Weight 92.986 kg Intake: Intake, IV Titration 198.297 149.596 218.641 Amount Diltiazem 125 mg In 106.167 Sodium Chloride 0.9% 100 ml @ 5 MG/HR 5 mls/hr IV .Q24H [facility] Rx#:[id number] Heparin Sod,Pork in 0.45% 92.13 149.596 218.641 NaCl 25,000 unit In 0.45 % NaCl 1 250ml.bag @ 10. 75 UNITS/KG/HR 9.996 mls/ hr IV .Q24H [facility] Rx#: [id number] Oral 590 118 Other: Voiding Method Toilet Toilet Toilet # Voids 3 3 - Exam GENERAL: The patient is alert and oriented x3, not in any acute distress. Well developed, well nourished. HEENT: Pupils are round and equally reacting to light. EOMI. No scleral icterus. No conjunctival pallor. Normocephalic, atraumatic. No pharyngeal erythema. No thyromegaly. CARDIOVASCULAR: S1 and S2 present. No murmurs, rubs, or gallops. PULMONARY: Chest is clear to auscultation, no wheezing , no crackles. ABDOMEN: Soft, nontender, nondistended, normoactive bowel sounds. No palpable organomegaly. MUSCULOSKELETAL: No joint swelling or deformity. EXTREMITIES: No cyanosis, clubbing, or pedal edema. NEUROLOGICAL: Gross neurological examination did not reveal any focal deficits. SKIN: No rashes. no petechiae. - Labs CBC & Chem 7: 07/25/24 05:49 07/25/24 05:49 Labs: Abnormal Lab Results - Last 24 Hours (Table) 07/24/24 07/25/24 07/25/24 Range/Units 19:50 05:08 05:49 RBC (4.10-5.20) X 10*6/uL MCHC (32.0-37.0) g/dL APTT 53.6 H (22.0-30.0) sec Carbon Dioxide (21.6-31.8) mmol/L Anion Gap (4.00-12.00) mmol/L Glucose (70-110) mg/dL POC Glucose (mg/dL) 270 H 152 H (70-110) mg/dL Hemoglobin A1c (<=6.0) % Total Bilirubin (0.3-1.2) mg/dL AST (13-35) U/L ALT (8-44) U/L 07/25/24 07/25/24 07/25/24 Range/Units 05:49 05:49 05:49 RBC 4.02 L (4.10-5.20) X 10*6/uL MCHC 31.8 L (32.0-37.0) g/dL APTT (22.0-30.0) sec Carbon Dioxide 19.4 L (21.6-31.8) mmol/L Anion Gap 15.60 H (4.00-12.00) mmol/L Glucose 157 H (70-110) mg/dL POC Glucose (mg/dL) (70-110) mg/dL Hemoglobin A1c 9.2 H (<=6.0) % Total Bilirubin 1.4 H (0.3-1.2) mg/dL AST 43 H (13-35) U/L ALT 67 H (8-44) U/L 07/25/24 07/25/24 Range/Units 12:27 17:17 RBC (4.10-5.20) X 10*6/uL MCHC (32.0-37.0) g/dL APTT (22.0-30.0) sec Carbon Dioxide (21.6-31.8) mmol/L Anion Gap (4.00-12.00) mmol/L Glucose (70-110) mg/dL POC Glucose (mg/dL) 243 H 209 H (70-110) mg/dL Hemoglobin A1c (<=6.0) % Total Bilirubin (0.3-1.2) mg/dL AST (13-35) U/L ALT (8-44) U/L Microbiology - Last 24 Hours (Table) 07/23/24 22:14 Blood Culture - Preliminary Blood Assessment and Plan Assessment: A-fib and RVR Chest pain could be related to above, improved mild cardiomyopathy with ejection fraction 45 to 40% with mild to moderate mitral regurgitation Acute cholecystitis, currently asymptomatic and cleared for discharge by surgery team Obesity Mild transaminitis Plan: Discontinue Cardizem drip No surgical intervention per Dr. Cortez, resume Eliquis and cleared her for discharge Cardiology increase metoprolol to 50 mg Echocardiogram reviewed Metformin and dose increased, Farxiga is added Labs and medication were reviewed.. Continue same treatment. Continue with symptomatic treatment. Resume home medication. Monitor labs and vitals. DVT and GI prophylaxis. Further recommendations as per clinical course of the patient DVT prophylaxis: Heparin GI Prophylaxis: Pepcid Prognosis is guarded Discharge in 24 hours
[2024-07-26 05:54] LABS: Glucose,Whole Blood 130 mg/dL (70-110)
[2024-07-26 07:48] VITALS: BP 113/74; PULSE 116; RESP 18; TEMP 98.1
[2024-07-26] MEDS: DAPAGLIFLOZIN PROPANEDIOL 10 MG TABLET PO SCH (09:00)
[2024-07-26 09:25] LABS: Magnesium 1.8 mg/dL (1.5-2.4); Potassium 4.6 mmol/L (3.5-5.5)
--- NOTE | 2024-07-26 10:35 | P.PN ---
Subjective Progress Note Date: 07/26/24 CHIEF COMPLAINT: Cholecystitis HISTORY OF PRESENT ILLNESS: The patient is a 68 year old female who presented with atypical chest pain. No reports of abdominal pain. She is tolerating diet. She is eager to go home. She is sitting up in a chair. REVIEW OF ORGAN SYSTEMS: No fevers or chills. No shortness of breath. PHYSICAL EXAM: VITALS: Reviewed CONSTITUTIONAL: Well developed and in no acute distress. EYES: Conjuctivae without sclera icterus. Extraocular movements grossly intact. HEAD, EARS, NOSE, THROAT: Moist buccal mucosa. Head is atraumatic, normocephalic. Hears conversational speech. No nasal drainage. RESPIRATORY: Non-labored respirations and equal bilateral excursions. No gross wheezes. CARDIOVASCULAR: Palpable 2+ radial pulses. ABDOMEN: Nontender. MUSCULOSKELETAL: No clubbing cyanosis or edema SKIN: Warm and well perfused with good skin turgor. NEUROLOGIC: Cranial nerves II through XII grossly intact. No focal or lateralizing signs. PSYCH: Appropriate affect. Alert and oriented to person, place and time. Displays appropriate insight. CLINCAL LABS: Reviewed. WBC normal. Potassium normal 4.8. Magnesium mildly low 1.8. ASSESSMENT: 1. Atypical chest pain 2. New onset atrial fibrillation rapid ventricular response 3. CT finding for acute cholecystitis 4. Morbid obesity to excess calories, BMI 35.2 5. Diabetes type 2 6. Hypertensive heart disease PLAN: 1. Overall, pending clearances for discharge with cardiology and medicine. 2. May follow-up as needed. Objective - Vital Signs Vital signs: Vital Signs Temp 98.1 F 07/26/24 07:01 Pulse 116 H 07/26/24 07:01 Resp 18 07/26/24 07:01 BP 113/74 07/26/24 07:01 Pulse Ox 97 07/26/24 07:01 FiO2 Intake & Output 07/25/24 07/26/24 07/26/24 18:59 06:59 18:59 Intake Total 336.641 Balance 336.641 Intake: Intake, IV Titration 218.641 Amount Heparin Sod,Pork in 0.45% 218.641 NaCl 25,000 unit In 0.45 % NaCl 1 250ml.bag @ 10. 75 UNITS/KG/HR 9.996 mls/ hr IV .Q24H [facility] Rx#: [id number] Oral 118 Other: Voiding Method Toilet Toilet Toilet # Voids 3 3 - Labs CBC & Chem 7: 07/25/24 05:49 07/26/24 05:33 Labs: Abnormal Lab Results - Last 24 Hours (Table) 07/25/24 07/25/24 07/25/24 Range/Units 12:27 17:17 20:15 POC Glucose (mg/dL) 243 H 209 H 178 H (70-110) mg/dL 07/26/24 Range/Units 05:52 POC Glucose (mg/dL) 130 H (70-110) mg/dL Microbiology - Last 24 Hours (Table) 07/23/24 22:14 Blood Culture - Preliminary Blood
[2024-07-26 12:05] LABS: Glucose,Whole Blood 209 mg/dL (70-110)
[2024-07-26 12:44] VITALS: BMI 35.2
--- NOTE | 2024-07-26 14:10 | P.PN ---
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 She presented to the hospital with few days chest discomfort appears to be mostly with exertion and better with resting associated with shortness of breath with exertion as well as associated with heart racing and fluttering. She has been experiencing heart racing/fluttering for the last 6 months but has been not as often as now. Lately it has been more often and more intense. No presyncope or syncope and no dizziness or lightheadedness. She was found to be in atrial fibrillation with overall RVR. She was started on Cardizem IV with improvement in the heart rate. Also she was started on heparin IV. She underwent a CT scan of the chest which showed heavily calcified coronary arteries but also the CT scan of the abdomen revealed acute cholecystitis currently under investigation by the GI service. The EKG showed atrial fibrillation with diffuse nonspecific ST and T wave abnormalities. The chest x-ray did not show any acute abnormalities. Currently she is asymptomatic. No history of CAD or cardiac arrhythmia or heart failure. The physical examination is remarkable for irregular rhythm with clear breathing sounds bilaterally and no edema was noted in the lower extremities July 26, 2024 The patient was seen and evaluated and current she is asymptomatic and hemodynamically stable which she remains in atrial fibrillation with controlled heart rate on the current dose of beta-anthony and she is also on oral anticoagulation. As a matter fact her heart rate is slightly elevated but she would like to wait on any change in the dose of metoprolol at this point. The physical examination is remarkable for irregular rhythm with clear breathing sounds bilaterally and no edema was noted with the echo showed mild cardiomyopathy with EF around 45% Assessment Chest discomfort which has resolved New onset atrial fibrillation Plan Continue the current medical regimen Follow-up with the patient as an outpatient Objective - Vital Signs Vital signs: Vital Signs Temp 98.1 F 07/26/24 07:01 Pulse 116 H 07/26/24 07:01 Resp 18 07/26/24 07:01 BP 113/74 07/26/24 07:01 Pulse Ox 97 07/26/24 07:01 FiO2 Intake & Output 07/25/24 07/26/24 07/26/24 18:59 06:59 18:59 Intake Total 336.641 480 Balance 336.641 480 Weight 92.986 kg Intake: Intake, IV Titration 218.641 Amount Heparin Sod,Pork in 0.45% 218.641 NaCl 25,000 unit In 0.45 % NaCl 1 250ml.bag @ 10. 75 UNITS/KG/HR 9.996 mls/ hr IV .Q24H [facility] Rx#: [id number] Oral 118 480 Other: Voiding Method Toilet Toilet Toilet # Voids 3 3 - Labs CBC & Chem 7: 07/25/24 05:49 07/26/24 05:33 Labs: Abnormal Lab Results - Last 24 Hours (Table) 07/25/24 07/25/24 07/26/24 Range/Units 17:17 20:15 05:52 POC Glucose (mg/dL) 209 H 178 H 130 H (70-110) mg/dL 07/26/24 Range/Units 12:01 POC Glucose (mg/dL) 209 H (70-110) mg/dL Microbiology - Last 24 Hours (Table) 07/23/24 22:14 Blood Culture - Preliminary Blood
--- NOTE | 2024-07-26 20:31 | P.DS ---
Providers Date of admission: 07/24/24 01:26 Attending physician: Ori Gramajo MD Consults: 07/24/24 00:01 Consult Physician Urgent Consulting Provider: [facility] Consult Reason/Comments: New onset A-fib with RVR Do you want consulting provider notified?: Yes, Notify in am Consult Physician Urgent Consulting Provider: Breana Cortez Consult Reason/Comments: Acute cholecystitis Do you want consulting provider notified?: Already Contacted Primary care physician: Annie Fagan [facility] Course: Diagnoses: A-fib and RVR, controlled rate upon discharge and started on Eliquis Chest pain could be related to above, improved mild cardiomyopathy with ejection fraction 45 to 40% with mild to moderate mitral regurgitation Acute cholecystitis, currently asymptomatic and cleared for discharge by surgery team Obesity Mild transaminitis Hospital course: This is a pleasant 68 years old female who presents initially because of chest pain and abdominal pain. Patient states that she has chest pain about 1 week, patient was found to have new onset A-fib and RVR, evaluated by roller stainer and started on metoprolol 50 mg and Eliquis 5 mg twice daily. Patient heart rate controlled and patient feels much better, today she feels she better than many months and years ago. No chest pain or dyspnea. And patient was cleared for discharge by roller stainer although the echocardiogram show mild cardiomyopathy with ejection fraction 45 to 50% but patient is asymptomatic. We checked with the bottle caser and with the pharmacy patient does not have coverage by her Medicare insurance for her Eliquis therefore free 1 month coupon is provided for her upon discharge with recommendation to check with her roller stainer and PCP in 1 to 2 weeks to switch it to another affordable choice like warfarin, patient and daughter at bedside both verbalized understanding and acceptance Also patient evaluated by Dr. Cortez from general surgery for possible acute cholecystitis. However her symptoms improved, no abdominal pain, patient became asymptomatic and tolerates diet well and abdomen soft. Patient was cleared for discharge from general surgery since yesterday. Patient was uncontrolled diabetes with hemoglobin A1c 9.2%, she takes metformin 500 mg twice daily which was increased to 1000 mg twice daily and started on Farxiga. Patient denies any other new complaint and she was eager to go home today Patient was cleared for discharge by both cardiology and general surgery team. Problems and management plan were discussed with the patient and he verbalized understanding and acceptance Patient was found stable and can be discharged home in guarded prognosis however he needs follow-up as an outpatient. Patient was instructed to follow up with PCP Dr. Fagan within one week and patient agrees. Patient states she has already appointment with him on 08/12, patient was advised to reschedule within 1 week and she agrees Patient was instructed to follow-up with general surgery Dr. Sibley in 2 weeks and she agrees and with roller stainer Dr. Schultz in 1-2 weeks after discharge and she agrees as well Physical exam Gen: patient is a AAOx3, no distress CVS: S1-S2, RRR, no murmur Lungs: B/L CTA, no wheezing Abdomen: soft, no distention, no tenderness, positive bowel sounds Extremity: no leg edema or induration Time spent more than 35 minutes Patient Condition at Discharge: Serious Plan - Discharge Summary Discharge Rx Participant: No New Discharge Prescriptions: New Apixaban [Eliquis] 5 mg PO BID #60 tab Dapagliflozin Propanediol [Farxiga] 10 mg PO DAILY #30 tab metFORMIN HCL [Glucophage] 1,000 mg PO BID #60 tab Metoprolol Succinate (ER) [Toprol XL] 50 mg PO DAILY #30 tab Continue Atorvastatin [Lipitor] 20 mg PO PC-SUPPER lisinopriL 20 mg PO PC-SUPPER Discontinued metFORMIN HCL 500 mg PO PC-TID Discharge Medication List Atorvastatin [Lipitor] 20 mg PO PC-SUPPER 08/13/18 [History] lisinopriL 20 mg PO PC-SUPPER 08/13/18 [History] Apixaban [Eliquis] 5 mg PO BID #60 tab 07/25/24 [Rx] Metoprolol Succinate (ER) [Toprol XL] 50 mg PO DAILY #30 tab 07/25/24 [Rx] Dapagliflozin Propanediol [Farxiga] 10 mg PO DAILY #30 tab 07/26/24 [Rx] metFORMIN HCL [Glucophage] 1,000 mg PO BID #60 tab 07/26/24 [Rx] Follow up Appointment(s)/Referral(s): Annie Fagan MD [Primary Care Provider] - 1-2 days Alphonse Kenney MD [STAFF PHYSICIAN] - 1 Week Breana Cortez MD [STAFF PHYSICIAN] - As Needed Patient Instructions/Handouts: A-fib (Atrial Fibrillation) (DC) Activity/Diet/Wound Care/Special Instructions: Heart healthy diet Activity is restricted till you see your doctor Discharge Disposition: HOME WITH HOME HEALTH SERVICES
[2024-07-26] MEDS ORDERED: FAMOTIDINE 20 MG TAB PO SCH (21:00)
[2024-07-26] MEDS ORDERED: metFORMIN 850 MG TAB PO SCH (21:15)
== END 2024-07-26 15:02 | disposition home health service (06) ==
LOC: EC 19:40 → 3SCARD 07-24 01:26 → 6NMEDSUR 07-24 13:37
PROVIDERS: ADMIT Internal Medicine; ATTEND Internal Medicine
DX: I48.91 Unspecified atrial fibrillation (principal); R07.89 Other chest pain; R74.01 Elevation of levels of liver transaminase levels; E11.65 Type 2 diabetes mellitus with hyperglycemia; E66.01 Morbid (severe) obesity due to excess calories; E78.5 Hyperlipidemia, unspecified; I11.9 Hypertensive heart disease without heart failure; I34.0 Nonrheumatic mitral (valve) insufficiency; I42.9 Cardiomyopathy, unspecified; K81.0 Acute cholecystitis; Z68.35 Body mass index [BMI] 35.0-35.9, adult; Z79.84 Long term (current) use of oral hypoglycemic drugs; Z79.899 Other long term (current) drug therapy; Z88.0 Allergy status to penicillin; Z88.5 Allergy status to narcotic agent
CPT/HCPCS: 96376 ×3; 96366 ×4; 96367; 96368 ×2; 96365 ×2; 96375 ×2; 99285; 36415; 93005; 93306; 80053 ×2; 84443; 83735 ×2; 84132; 84484 ×2; 85025 ×3; 85610 ×2; 85730 ×3; 81003; 87040; 83036; 71046; 71260; 74177; 78226; G0378 ×4; A9537; J0696; J3490 ×3; J1644 ×4; J1885; Q9967; J1836

== ENCOUNTER 2024-07-29 19:29 | Inpatient (IN) | payer MEDICARE ==
[2024-07-29 20:22] LABS: Basophils # (A) 0.1 k/uL (0-0.2); Basophils % (A) 1 %; Eosinophils # (A) 0.1 k/uL (0-0.7); Eosinophils % (A) 2 %; HCT 39.6 % (34.0-46.0); HGB 12.4 gm/dL (11.4-16.0); Hypochromasia Slight; Lymphocytes # (A) 1.8 k/uL (1.0-4.8); Lymphocytes % (A) 27 %; MCH 29.8 pg (25.0-35.0); MCHC 31.4 g/dL (31.0-37.0); Mean Platelet Volume 8.1; Monocytes # (A) 0.5 k/uL (0-1.0); Monocytes % (A) 8 %; Neutrophils % (A) 61 %; Platelet Count 242 k/uL (150-450); RBC 4.17 m/uL (3.80-5.40); RDW 13.9 % (11.5-15.5); WBC 6.6 k/uL (3.8-10.6)
[2024-07-29 20:29] LABS: INR 1.2 (<1.2); Partial Thromboplastin Time 22.2 sec (22.0-30.0); Prothrombin Time 12.6 sec (10.0-12.5)
--- NOTE | 2024-07-29 20:29 | ED ---
Chest Pain HPI - General Source: patient, RN notes reviewed Mode of arrival: ambulatory Limitations: no limitations <Elis Reyna - Last Filed: 07/29/24 20:19> - General Source: patient, RN notes reviewed Mode of arrival: ambulatory Limitations: no limitations <Giovanni Trinh - Last Filed: 07/29/24 22:04> - General Chief Complaint: Chest Pain Stated Complaint: Palpitations Time Seen by Provider: 07/29/24 20:19 - History of Present Illness Initial Comments: Quick [id number] female presenting with chest pressure x 1 day with associated shortness of breath. States she was newly diagnosed with atrial fibrillation and started on Eliquis. (Elis Reyna) Patient is a 68-year-old female present to the emergency department with concerns for palpitations. Patient was just discharged from the hospital. Patient had new onset A-fib. Patient states heart rate has been high at home, 130 as high as up to 160. Patient does have some minimal discomfort and some shortness of breath associated. Patient states leg swelling has diminished. No calf pain. (Giovanni Trinh) - Related Data Home Medications Medication Instructions Recorded Confirmed Atorvastatin [Lipitor] 20 mg PO AC-SUPPER 08/13/18 07/29/24 lisinopriL 20 mg PO AC-SUPPER 08/13/18 07/29/24 Apixaban [Eliquis] 5 mg PO AC-BID 07/29/24 07/29/24 Metoprolol Succinate (ER) [Toprol 50 mg PO AC-SUPPER 07/29/24 07/29/24 XL] metFORMIN HCL [Glucophage] 1,000 mg PO AC-BID 07/29/24 07/29/24 Allergies Allergy/AdvReac Type Severity Reaction Status Date / Time hydrocodone [From Vicodin] Allergy Rash/Hives Verified 07/29/24 20:55 Penicillins Allergy Rash/Hives Verified 07/29/24 20:55 Review of Systems ROS Other: All systems not noted in ROS Statement are negative. <Elis Reyna - Last Filed: 07/29/24 20:19> ROS Other: All systems not noted in ROS Statement are negative. Constitutional: Denies: fever Eyes: Denies: eye pain ENT: Denies: ear pain Respiratory: Reports: as per HPI. Denies: cough Cardiovascular: Reports: as per HPI, palpitations Endocrine: Denies: fatigue <Giovanni Trinh - Last Filed: 07/29/24 22:04> ROS Statement: Those systems with pertinent positive or pertinent negative responses have been documented in the HPI. EKG Findings - EKG Results: EKG: interpreted by ERMD (Right axis. Low QRS voltage. Nonspecific ST-T) EKG shows: tachycardia, atrial fibrillation <Giovanni Trinh - Last Filed: 07/29/24 22:04> Past Medical History Past Medical History: Atrial Fibrillation, Diabetes Mellitus, Hyperlipidemia, Hypertension Additional Past Medical History / Comment(s): vertigo, AFIB June 2024 History of Any Multi-Drug Resistant Organisms: None Reported Past Surgical History: Tubal Ligation Past Psychological History: No Psychological Hx Reported Smoking Status: Former smoker Past Alcohol Use History: None Reported Past Drug Use History: None Reported <Elis Reyna - Last Filed: 07/29/24 20:19> General Exam Limitations: no limitations <Elis Reyna - Last Filed: 07/29/24 20:19> Limitations: no limitations General appearance: alert Head exam: Present: normocephalic Eye exam: Present: normal appearance Neck exam: Present: normal inspection Respiratory exam: Present: normal lung sounds bilaterally Cardiovascular Exam: Present: tachycardia, irregular rhythm GI/Abdominal exam: Present: soft. Absent: tenderness Extremities exam: Present: normal inspection. Absent: pedal edema, calf tenderness Neurological exam: Present: alert Psychiatric exam: Present: normal affect, normal mood Skin exam: Present: normal color <Giovanni Trinh - Last Filed: 07/29/24 22:04> - General Exam Comments Initial Comments: Visual Physical Exam Vital signs reviewed General: Well-appearing, nontoxic, no acute distress. Head: Normocephalic, atraumatic Eyes: PERRLA, EOMI ENT: Airway patent Chest: Nonlabored breathing Skin: No visual rash, normal skin tone Neuro: Alert and oriented 3 Musculoskeletal: No gross abnormalities (Elis Reyna) Course Vital Signs 07/29/24 07/29/24 19:43 21:27 Temperature 98.1 F Pulse Rate 124 H 102 H Respiratory 20 20 Rate Blood Pressure 139/96 118/91 O2 Sat by Pulse 98 Oximetry Chest Pain MDM <Elis Reyna - Last Filed: 07/29/24 20:19> <Giovanni Trinh - Last Filed: 07/29/24 22:04> - MDM I completed the quick note portion of this chart signed Elis Reyna PA-C (Elis Reyna) Was pt. sent in by a medical professional or institution (ROSALIE Rowland, CHILD CARE WORKER, urgent care, hospital, or detention...) When possible be specific @ -No Did you speak to anyone other than the patient for history (EMS, parent, family, police, friend...)? What history was obtained from this source @ -'s present helps provide information including heart rate at home Did you review nursing and triage notes (agree or disagree)? Why? @ -I reviewed and agree with nursing and triage notes Were old charts reviewed (outside hosp., previous admission, EMS record, old EKG, old radiological studies, urgent care reports/EKG's, detention records)? Report findings @ -Previous admission reviewed Differential Diagnosis (chest pain, altered mental status, abdominal pain women, abdominal pain men, vaginal bleeding, weakness, fever, dyspnea, syncope, headache, dizziness, GI bleed, back pain, seizure, CVA, palpatations, mental health, musculoskeletal)? @ -Differential Palpitations Ventricular arrhythmias, atrial arrhythmias, myocardial infarction, anemia, thyrotoxicosis, electrolyte imbalance, hypokalemia, pulmonary embolism, pulmonary disease, drugs, alcohol, anxiety, stress.... This is not meant to be an all-inclusive list. EKG interpreted by me (3pts min.). @ -As above X-rays interpreted by me (1pt min.). @ -Chest x-ray interpreted by myself has mild cardiomegaly. Mild increase interstitial changes CT interpreted by me (1pt min.). @ -None done U/S interpreted by me (1pt. min.). @ -None done What testing was considered but not performed or refused? (CT, X-rays, U/S, labs)? Why? @ -None What meds were considered but not given or refused? Why? @ -None Did you discuss the management of the patient with other professionals (professionals i.e. ROSALIE Rowland, CHILD CARE WORKER, lab, RT, psych nurse, health social work professor, executive officer special warfare team, teacher, coastal/harbor defense officer, social work case manager)? Give summary @ -Case discussed with practitioner Madonna Fonseca who will admit covering Dr. Kirkland Was smoking cessation discussed for >3mins.? @ -No Was critical care preformed (if so, how long)? @ -31 minutes critical care time Were there social determinants of health that impacted care today? How? (Homelessness, low income, unemployed, alcoholism, drug addiction, transportation, low edu. Level, literacy, decrease access to med. care, skilled nursing, rehab)? @ -No Was there de-escalation of care discussed even if they declined (Discuss DNR or withdrawal of care, Hospice)? DNR status @ -No What co-morbidities impacted this encounter? (DM, HTN, Smoking, COPD, CAD, Cancer, CVA, ARF, Chemo, Hep., AIDS, mental health diagnosis, sleep apnea, morbid obesity)? @ -Recent diagnosis A-fib RVR Was patient admitted / discharged? Hospital course, mention meds given and route, prescriptions, significant lab abnormalities, going to OR and other pertinent info. @ -Patient presents with recurrent A-fib RVR. Heart rate has been between 125 130 in the emergency department. Patient will be admitted with cardiac consult. Patient and family updated. Admission orders written. Undiagnosed new problem with uncertain prognosis? @ -No Drug Therapy requiring intensive monitoring for toxicity (Heparin, Nitro, Insulin, Cardizem)? @ -Cardizem drip Were any procedures done? @ -No Diagnosis/symptom? @ -A-fib with RVR Acute, or Chronic, or Acute on Chronic? @ -Acute Uncomplicated (without systemic symptoms) or Complicated (systemic symptoms)? @ -Default Side effects of treatment? @ -No Exacerbation, Progression, or Severe Exacerbation? @ - Poses a threat to life or bodily function? How? (Chest pain, [place], NH, pneumonia, PE, COPD, DKA, ARF, appy, cholecystitis, CVA, Diverticulitis, Homicidal, Suicidal, threat to staff... and all critical care pts) @ -Threat to cardiac function (Giovanni Trinh) Critical Care Time Critical Care Time: Yes <Giovanni Trinh - Last Filed: 07/29/24 22:04> Disposition <Elis Reyna - Last Filed: 07/29/24 20:19> Is patient prescribed a controlled substance at d/c from ED?: No Time of Disposition: 21:06 <Goivanni Trinh - Last Filed: 04/01/25 22:04> Clinical Impression: Atrial fibrillation with RVR Disposition: ADMITTED IP TO THIS HOSP
[2024-07-29 20:30] LABS: MCV 94.9 fL (80.0-100.0)
[2024-07-29 20:42] LABS: Potassium 4.4 mmol/L (3.5-5.1)
[2024-07-29 20:43] LABS: ALT 65 U/L (4-34); AST 54 U/L (14-36); African American GFR (CKD) >90 (>60 ml/min/1.73 sqM); Albumin 3.9 g/dL (3.5-5.0); Alkaline Phosphatase 117 U/L (38-126); Anion Gap 8 mmol/L; Blood Urea Nitrogen 14 mg/dL (7-17); Calcium 9.2 mg/dL (8.4-10.2); Carbon Dioxide 25 mmol/L (22-30); Chloride 102 mmol/L (98-107); Glucose 176 mg/dL (74-99); Magnesium 1.8 mg/dL (1.6-2.3); Non-African American GFR(CKD) >90 (>60 ml/min/1.73 sqM); Sodium 135 mmol/L (137-145); Total Bilirubin 1.6 mg/dL (0.2-1.3); Total Protein 6.4 g/dL (6.3-8.2)
[2024-07-29] MEDS ORDERED: NALOXONE 0.4 MG/ML 1 ML VIAL IV PRN (21:07)
[2024-07-29] MEDS: DILTIAZEM 125 MG in SODIUM CHLORIDE 0.9% 100 ML IV SCH (21:22)
--- NOTE | 2024-07-29 21:59 | XR ---
EXAMINATION TYPE: XR chest 2V DATE OF EXAM: 07/29/2024 9:34 PM COMPARISON: 07/23/2024 CLINICAL INDICATION: Female, 68 years old with history of Chest Pain; [facility] TECHNIQUE: XR chest 2V Frontal and lateral views of the chest. FINDINGS: Lungs/Pleura: There is no evidence of pleural effusion, focal consolidation, or pneumothorax. Pulmonary vascularity: Pulmonary vascular congestion. Heart/mediastinum: Cardiomediastinal silhouette is enlarged. Musculoskeletal: No acute osseous pathology. Other findings: None Lines/Tubes: IMPRESSION: Cardiomegaly and mild pulmonary vascular congestion. Correlate with BNP for congestive heart failure. [facility], , 07/29/2024 9:57 PM
[2024-07-30] MEDS: metFORMIN 500 MG TAB PO SCH (06:26)
[2024-07-30] MEDS: APIXABAN 5 MG TAB PO SCH (06:26)
[2024-07-30] MEDS: METOPROLOL SUCCINATE (ER) 50 MG TAB.ER.24H PO SCH (10:09)
--- NOTE | 2024-07-30 12:49 | P.CRDCN ---
History of Present Illness Consult date: 07/30/24 Reason for Consult (text): Atrial fibrillation with RVR History of present illness: This is a 68-year-old female with past medical history of paroxysmal atrial fibrillation, overweight, diabetes, hypertension, dyslipidemia. Patient was recently hospitalized and discharged on 07/26. She was seen at that time by cardiology for new onset of atrial fibrillation. Patient was started on beta- anthony and oral anticoagulation. Patient states that she has been taking her medications as directed. Patient presented to the hospital due to shortness of breath and palpitations. Patient was found to have a heart rate at home up to 160. She has less lower extremity edema. Blood pressure 109/70, heart rate 100, pulse ox 97% on room air. Patient remains in atrial fibrillation. She is currently on Cardizem drip at 5 mg/h. Patient is seen today in the emergency center waiting for a bed on the observation unit. Dr. Amezcua discussed with th e patient the recommendations for MADHAV and cardioversion. Patient is very anxious about the procedures and at this time we will wait until morning to see if she has converted on her own. -EKG: Atrial fibrillation at rate of 116 bpm. -Chest x-ray: Cardiomegaly with mild pulmonary vascular congestion. -Laboratory studies: CBC normal. Sodium 135, potassium 4.4, creatinine 0.56. Troponin negative x 3. proBNP 2250. -Home cardiac medications: Eliquis 5 mg twice daily, atorvastatin 20 mg at supper, lisinopril 20 mg at supper, metoprolol succinate 50 mg at supper. -Echocardiogram performed 07/24/2024 revealed EF of 45 to 50%, aortic sclerosis, mild to moderate mitral regurgitation. Review Of Systems: At the time of my exam: CONSTITUTIONAL: Denies fever or chills. HEENT: Denies blurred vision, vision changes, or eye pain. Denies hemoptysis CARDIOVASCULAR: Denies chest pain. Denies orthopnea. Denies PND. Denies palpitations RESPIRATORY: Denies shortness of breath. GASTROINTESTINAL: Denies abdominal pain. Denies nausea or vomiting. HEMATOLOGIC: Denies bleeding disorders. GENITOURINARY: Denies any blood in urine. SKIN: Denies puritis. Denies rash. Physical examination: Gen: This is a 68-year-old obese female in no acute respiratory distress. VS: reviewed HEENT: Head is atraumatic, normocephalic. Pupils equal, round. Sclerae is anicteric. NECK: Supple. No JVD. LUNGS: Clear to auscultation. No wheezes or rhonchi. No intercostal retractions. HEART: Irregular rate and rhythm. No murmur. ABDOMEN: Soft No tenderness. EXTREMITIES: No pedal edema. No calf tenderness. NEUROLOGICAL: Patient is awake, alert and oriented x3. Assessment: Paroxysmal atrial fibrillation with RVR Diabetes mellitus type 2 Hypertension Dyslipidemia Obesity with BMI of 37 Plan: Resume patient's home cardiac medications with the following changes Increase frequency of Toprol XL 50 mg to twice daily starting now Reduce lisinopril to 10 mg daily and give at noon Continue Cardizem drip N.p.o. after midnight for possible MADHAV and cardioversion No need to repeat echocardiogram. Further recommendations to follow based upon clinical course Thank you kindly for this consultation. Nurse practitioner note has been reviewed, I agree with documented findings and plan of care. Patient was seen and examined. Past Medical History Past Medical History: Atrial Fibrillation, Diabetes Mellitus, Hyperlipidemia, Hypertension Additional Past Medical History / Comment(s): vertigo, AFIB June 2024 History of Any Multi-Drug Resistant Organisms: None Reported Past Surgical History: Tubal Ligation Past Psychological History: No Psychological Hx Reported Smoking Status: Former smoker Past Alcohol Use History: None Reported Past Drug Use History: None Reported Medications and Allergies Home Medications Medication Instructions Recorded Confirmed Type Atorvastatin [Lipitor] 20 mg PO AC-SUPPER 08/13/18 07/29/24 History lisinopriL 20 mg PO AC-SUPPER 08/13/18 07/29/24 History Apixaban [Eliquis] 5 mg PO AC-BID 07/29/24 07/29/24 History Metoprolol Succinate (ER) [Toprol 50 mg PO AC-SUPPER 07/29/24 07/29/24 History XL] metFORMIN HCL [Glucophage] 1,000 mg PO AC-BID 07/29/24 07/29/24 History Allergies Allergy/AdvReac Type Severity Reaction Status Date / Time hydrocodone [From Vicodin] Allergy Rash/Hives Verified 07/29/24 20:55 Penicillins Allergy Rash/Hives Verified 07/29/24 20:55 Physical Exam Vitals: Vital Signs Temp Pulse Pulse Resp BP BP Pulse Ox 07/30/24 12:11 97.8 F 70 16 117/69 95 07/30/24 11:18 100 17 130/80 95 07/30/24 10:07 77 07/30/24 08:04 97.8 F 100 21 109/70 97 07/30/24 02:00 98.5 F 82 18 113/81 98 07/30/24 00:33 87 18 114/88 07/29/24 21:27 102 H 20 118/91 07/29/24 19:43 98.1 F 124 H 20 139/96 98 Intake and Output 07/29/24 07/30/24 07/30/24 22:59 06:59 14:59 Other: Weight 97.84 kg Results 07/29/24 20:05 07/29/24 20:05 Cardiac Enzymes 07/29/24 07/29/24 07/29/24 Range/Units 20:05 20:05 23:26 AST 54 H (14-36) U/L Troponin I <0.012 <0.012 (0.000-0.034) ng/mL 07/30/24 Range/Units 02:54 AST (14-36) U/L Troponin I <0.012 (0.000-0.034) ng/mL Coagulation 07/29/24 Range/Units 20:05 PT 12.6 H (10.0-12.5) sec APTT 22.2 (22.0-30.0) sec CBC 07/29/24 Range/Units 20:05 WBC 6.6 (3.8-10.6) k/uL RBC 4.17 (3.80-5.40) m/uL Hgb 12.4 (11.4-16.0) gm/dL Hct 39.6 (34.0-46.0) % Plt Count 242 (150-450) k/uL Comprehensive Metabolic Panel 07/29/24 Range/Units 20:05 Sodium 135 L (137-145) mmol/L Potassium 4.4 (3.5-5.1) mmol/L Chloride 102 (98-107) mmol/L Carbon Dioxide 25 (22-30) mmol/L BUN 14 (7-17) mg/dL Creatinine 0.56 (0.52-1.04) mg/dL Glucose 176 H (74-99) mg/dL Calcium 9.2 (8.4-10.2) mg/dL AST 54 H (14-36) U/L ALT 65 H (4-34) U/L Alkaline Phosphatase 117 (38-126) U/L Total Protein 6.4 (6.3-8.2) g/dL Albumin 3.9 (3.5-5.0) g/dL Current Medications Generic Name Dose Route Start Last Admin Trade Name Freq PRN Reason Stop Dose Admin Apixaban 5 mg 07/30/24 07:30 07/30/24 06:26 Apixaban 5 Mg Tab PO 5 mg AC-BID NORTH Administration Protocol Atorvastatin Calcium 20 mg 07/30/24 17:30 Atorvastatin 20 Mg Tab PO AC-SUPPER NORTH Diltiazem HCl 125 mg/ Sodium 125 mls @ 5 mls/hr 07/29/24 21:15 07/29/24 21:22 Chloride IV 5 mg/hr .Q24H NORTH 5 mls/hr Administration 5 MG/HR Lisinopril 10 mg 07/30/24 17:30 Lisinopril 10 Mg Tab PO AC-SUPPER NORTH Metformin HCl 1,000 mg 07/30/24 07:30 07/30/24 06:26 Metformin 500 Mg Tab PO 1,000 mg AC-BID NORTH Administration Metoprolol Succinate 50 mg 07/30/24 09:15 07/30/24 10:09 Metoprolol Succinate (Er) 50 Mg Tab.Er.24h PO 50 mg BID NORTH Administration Naloxone HCl 0.2 mg 07/29/24 21:07 Naloxone 0.4 Mg/Ml 1 Ml Vial IV Q2M PRN Opioid Reversal Intake and Output 07/29/24 07/30/24 07/30/24 22:59 06:59 14:59 Other: Weight 97.84 kg 07/29/24 20:05 07/29/24 20:05
[2024-07-30] MEDS ORDERED: DEXTROSE 50% SYRINGE 50 ML IVP PRN ×2 (13:26)
[2024-07-30] MEDS: FUROSEMIDE 10 MG/ML 2 ML VIAL IV SCH (17:04)
[2024-07-30] MEDS: ATORVASTATIN 20 MG TAB PO SCH (17:05)
[2024-07-30] MEDS ORDERED: lisinopriL 10 MG TAB PO SCH (17:30)
[2024-07-30] MEDS ORDERED: METOPROLOL SUCCINATE (ER) 50 MG TAB.ER.24H PO SCH (17:30)
[2024-07-30] MEDS ORDERED: lisinopriL 20 MG TAB PO SCH (17:30)
[2024-07-30 17:38] LABS: Glucose,Whole Blood 186 mg/dL (70-110)
[2024-07-30] MEDS: INSULIN LISPRO (HumaLOG) 100 UNIT/ML 10 mL VL SQ SCH (18:17)
[2024-07-30 20:34] LABS: Glucose,Whole Blood 233 mg/dL (70-110)
--- NOTE | 2024-07-30 21:43 | HP ---
HISTORY AND PHYSICAL CHIEF COMPLAINT: Shortness of breath and palpitation. HISTORY OF PRESENT ILLNESS: This is a 68-year-old woman with a past medical history of multiple medical problems including atrial fibrillation, was admitted with atrial fibrillation with fast ventricular rate with symptoms of shortness of breath and palpitation. Cardiology planning a MADHAV and cardioversion at this time. No chest pain. No palpitation. Heart rate was around 116 at the time of admission. The chest x-ray which I reviewed personally showed cardiomegaly and mild pulmonary venous congestion. 2D echo done recently showed LV ejection fraction 45% to 50% with a mildly decreased hypokinetic and inferoseptal wall. There is no history of any fever, rigors, or chills. PAST MEDICAL HISTORY: Reviewed include atrial fibrillation, diabetes mellitus type 2, hypertension, hyperlipidemia. Rest of the history and rest of the chart is also reviewed. HOME MEDICATIONS: Reviewed include Glucophage. Dose and rest of medications reviewed. ALLERGIES: Vicodin. FAMILY HISTORY: No history of heart disease or strokes in the family. SOCIAL HISTORY: Previous history of smoking. REVIEW OF SYSTEMS: Fourteen-point review of systems is negative except as mentioned earlier. PHYSICAL EXAMINATION: VITAL SIGNS: Pulse is 70, blood pressure 170/69, respirations 16. HEENT: Conjunctivae normal. NECK: No JVD. CARDIOVASCULAR: S1, S2. RESPIRATIONS: A few scattered rhonchi. ABDOMEN: Soft. NERVOUS SYSTEM: Nonfocal. LABORATORY DATA: Sodium 135. Rest of the labs are noted. BNP is 2250. Troponins are normal. ASSESSMENT: 1. Atrial fibrillation with fast ventricular rate. 2. Congestive heart failure with possible acute on chronic systolic dysfunction, ejection fraction 45% to 50%. 3. Elevated bilirubin with AST, ALT. 4. Diabetes mellitus, type 2. 5. Hypertension. 6. Hyperlipidemia. 7. History of vertigo. RECOMMENDATIONS AND DISCUSSION: This is a 68-year-old woman, who presented with multiple complex medical issues, we will monitor the patient closely. Closely follow with Cardiology for possible MADHAV and cardioversion. The patient was on Cardizem drip at this time, I would also recommend small dose of Lasix and continue to monitor. Prognosis guarded because of multiple complex medical issues. Further recommendations to follow. See orders for further details. MMODL / IJN: [id number] /
[2024-07-31 05:54] LABS: Glucose,Whole Blood 135 mg/dL (70-110)
[2024-07-31] MEDS ORDERED: fentaNYL (PF) 50 MCG/ML 5 ML AMP IVP PRN ×2 (07:54→08:09)
[2024-07-31] MEDS ORDERED: MIDAZOLAM 2 MG/2 ML VIAL IV PRN ×2 (07:54→08:09)
[2024-07-31 08:30] LABS: ALT 54 U/L (8-44); AST 35 U/L (13-35); Albumin 3.7 g/dL (3.8-4.9); Albumin/Globulin Ratio 1.54 Ratio (1.60-3.17); Alkaline Phosphatase 119 U/L (41-126); Blood Urea Nitrogen 11.6 mg/dL (9.0-27.0); Carbon Dioxide 21.8 mmol/L (21.6-31.8); Chloride 104 mmol/L (96-109); Globulin 2.4 g/dL (1.6-3.3); Glucose 146 mg/dL (70-110); Potassium 4.1 mmol/L (3.5-5.5); Sodium 139 mmol/L (135-145); Total Bilirubin 1.1 mg/dL (0.3-1.2); Total Protein 6.1 g/dL (6.2-8.2)
[2024-07-31 08:54] LABS: Basophils # (A) 0.06 X 10*3/uL (0.00-0.10); Eosinophils # (A) 0.17 X 10*3/uL (0.04-0.35); Eosinophils % (A) 2.9 %; Lymphocytes # (A) 1.35 X 10*3/uL (0.90-5.00); Lymphocytes % (A) 22.7 %; MCH 29.8 pg (27.0-32.0); MCHC 31.6 g/dL (32.0-37.0); MCV 94.3 FL (80.0-97.0); Mean Platelet Volume 10.7 FL (9.5-12.2); Monocytes # (A) 0.61 X 10*3/uL (0.20-1.00); Monocytes % (A) 10.3 %; NRBC Per 100 WBC 0 X 10*3/uL (0.00-0.01); Neutrophils # (A) 3.73 X 10*3/uL (1.80-7.70); Neutrophils % (A) 62.6 %; Platelet Count 218 X 10*3/uL (140-440); RBC 4.03 X 10*6/uL (4.10-5.20); RDW 13.4 % (11.5-14.5); WBC 5.95 X 10*3/uL (4.50-10.00)
[2024-07-31] MEDS ORDERED: BENZOCAINE SPRAY 1 EACH MM SCH (09:00)
--- NOTE | 2024-07-31 10:12 | P.PN ---
Subjective Progress Note Date: 07/31/24 Reason for Consult (text): Atrial fibrillation with RVR History of present illness: This is a 68-year-old female with past medical history of paroxysmal atrial fibrillation, overweight, diabetes, hypertension, dyslipidemia. Patient was recently hospitalized and discharged on 07/26. She was seen at that time by cardiology for new onset of atrial fibrillation. Patient was started on beta- anthony and oral anticoagulation. Patient states that she has been taking her medications as directed. Patient presented to the hospital due to shortness of breath and palpitations. Patient was found to have a heart rate at home up to 160. She has less lower extremity edema. Blood pressure 109/70, heart rate 100, pulse ox 97% on room air. Patient remains in atrial fibrillation. She is currently on Cardizem drip at 5 mg/h. Patient is seen today in the emergency center waiting for a bed on the observation unit. Dr. Amezcua discussed with the patient the recommendations for MADHAV and cardioversion. Patient is very anxious about the procedures and at this time we will wait until morning to see if she has converted on her own. -EKG: Atrial fibrillation at rate of 116 bpm. -Chest x-ray: Cardiomegaly with mild pulmonary vascular congestion. -Laboratory studies: CBC normal. Sodium 135, potassium 4.4, creatinine 0.56. Troponin negative x 3. proBNP 2250. -Home cardiac medications: Eliquis 5 mg twice daily, atorvastatin 20 mg at supper, lisinopril 20 mg at supper, metoprolol succinate 50 mg at supper. -Echocardiogram performed 07/24/2024 revealed EF of 45 to 50%, aortic sclerosis, mild to moderate mitral regurgitation. 07/31 Patient seen and examined on the observation unit. Patient remains in atrial fibrillation with rate control. She is agreeable this morning to do MADHAV and cardioversion. This will be scheduled for Sunday due to scheduling issues. Blood pressure 128/64, heart rate 75, pulse ox 97% on room air. BC 5.9, hemoglobin 12, BUN 11, creatinine 0.8. Physical examination: Gen: This is a 68-year-old obese female in no acute respiratory distress. VS: reviewed HEENT: Head is atraumatic, normocephalic. Pupils equal, round. Sclerae is anicteric. NECK: Supple. No JVD. LUNGS: Clear to auscultation. No wheezes or rhonchi. No intercostal retractions. HEART: Irregular rate and rhythm. No murmur. ABDOMEN: Soft No tenderness. EXTREMITIES: No pedal edema. No calf tenderness. NEUROLOGICAL: Patient is awake, alert and oriented x3. Assessment: Paroxysmal atrial fibrillation with RVR Diabetes mellitus type 2 Hypertension Dyslipidemia Obesity with BMI of 37 Plan: Continue patient's home cardiac medications with the following changes Continue the increased frequency of Toprol XL 50 mg to twice daily and Reduction of lisinopril to 10 mg at noon Continue Cardizem drip and discontinue at 5 AM on Sunday N.p.o. after midnight Patient will be scheduled for MADHAV and cardioversion with Dr. Kenney on Sunday No need to repeat echocardiogram. Further recommendations to follow based upon clinical course Nurse practitioner note has been reviewed, I agree with documented findings and plan of care. Patient was seen and examined. Objective - Vital Signs Vital signs: Vital Signs Temp 98.4 F 07/31/24 02:19 Pulse 75 07/31/24 02:19 Resp 14 07/31/24 02:19 BP 128/64 07/31/24 02:19 Pulse Ox 97 07/31/24 02:19 FiO2 Intake & Output 07/30/24 07/31/24 07/31/24 18:59 06:59 18:59 Intake Total 114.833 Balance 114.833 Weight 97.84 kg Intake: Intake, IV Titration 114.833 Amount Diltiazem 125 mg In 114.833 Sodium Chloride 0.9% 100 ml @ 5 MG/HR 5 mls/hr IV .Q24H [facility] Rx#:[id number] Other: Voiding Method Toilet # Voids 1 2 - Labs CBC & Chem 7: 07/31/24 05:45 07/31/24 05:45 Labs: Abnormal Lab Results - Last 24 Hours (Table) 07/30/24 07/30/24 07/31/24 Range/Units 17:37 20:26 05:53 POC Glucose (mg/dL) 186 H 233 H 135 H (70-110) mg/dL
[2024-07-31 11:59] LABS: Glucose,Whole Blood 275 mg/dL (70-110)
[2024-07-31] MEDS: lisinopriL 10 MG TAB PO SCH (12:36)
[2024-07-31] MEDS: DILTIAZEM 125 MG in SODIUM CHLORIDE 0.9% 100 ML IV SCH (16:35)
[2024-07-31] MEDS: SODIUM CHLORIDE 0.9% 1,000 ML IV SCH (16:39)
[2024-07-31 17:46] LABS: Glucose,Whole Blood 206 mg/dL (70-110)
[2024-07-31 21:06] LABS: Glucose,Whole Blood 191 mg/dL (70-110)
[2024-07-31] MEDS: BENZOCAINE SPRAY 1 EACH MM SCH (21:17)
--- NOTE | 2024-07-31 21:47 | PN ---
PROGRESS NOTE DATE OF SERVICE: 07/31/2024 SUBJECTIVE: This is a 68-year-old woman, who was admitted with atrial fibrillation with fast ventricular rate, is scheduled to have a MADHAV cardioversion, which is being scheduled for on Sunday. No chest pain. No palpitation. OBJECTIVE: VITAL SIGNS: Pulse 70, blood pressure 94/59, respirations 16. CHEST: Clear to auscultation. CARDIOVASCULAR: S1, S2. ABDOMEN: Soft. NERVOUS SYSTEM: Nonfocal. LABORATORY DATA: Reviewed. ASSESSMENT: 1. Atrial fibrillation with fast ventricular rate for MADHAV and cardioversion. 2. Congestive heart failure with possible acute on chronic systolic dysfunction, ejection fraction 45% to 50%. 3. Elevated bilirubin with AST, ALT. 4. Diabetes mellitus, type 2. 5. Hypertension. 6. Hyperlipidemia. 7. History of vertigo. RECOMMENDATIONS AND DISCUSSION: I recommend to continue current medications, continue symptomatic treatment. Continue with Cardizem at this time per Cardiology, otherwise monitor blood sugars closely. MADHAV cardioversion per Cardiology. Guarded prognosis. Further recommendations to follow. MMODL / IJN: [id number] /
[2024-08-01 06:21] LABS: Glucose,Whole Blood 203 mg/dL (70-110)
[2024-08-01] MEDS: IV FLUID CONTINUATION 1,000 ML IV ONE ×2 (07:00→07:40)
[2024-08-01] MEDS ORDERED: PROPOFOL 10 MG/ML 20 ML VIAL IV ONE (07:07)
[2024-08-01] MEDS ORDERED: LIDOCAINE 1% INJ 10MG/ML (20 ML MDV) ONE (07:07)
--- NOTE | 2024-08-01 07:36 | P.PCN ---
Date of Procedure: 08/01/24 Operative Findings: TRANSESOPHAGEAL ECHOCARDIOGRAM WIND TURBINE ELECTRICAL ENGINEER: VONDA YANEZ MD, RPVI INDICATION: Rule out intracardiac thrombus before cardioversion SEDATION: Conscious sedation COMPLICATION: None LEVEL OF SEDATION The procedure was performed using propofol with WEDGER MACHINE in the room PROCEDURE DESCRIPTION: After obtaining an informed consent, the patient was brought to transesophageal echocardiogram room. Pulse oximetry and heart monitors were attached to the patient. The patient throat was sprayed using lidocaine. The patient was turned into left lateral position. After that a bite guard was placed. After an appropriate conscious sedation was initiated, the transesophageal echocardiogram was advanced through a bite guard into the mid esophagus. A 2-D echocardiogram images, color Doppler images, continuous wave images, pulse-wave images, of various cardiac structure were performed. After that the transesophageal echocardiogram probe was advanced into the stomach and fixed to obtain transgastric view was. The probe was brought into the mid esophagus. Inter-atrial septum was interrogated using 2D images, color Doppler images, and then contrast study. After that transesophageal echocardiogram was withdrawn out and upon withdrawing the descending thoracic aorta all the way up to the arch was evaluated. CONCLUSION: 1. Mildly impaired LV function with EF around 45% 2. Intact left atrial appendage and intact interatrial septum 3. Trileaflet aortic valve with no stenosis or regurgitation 4. Mildly thickened mitral valve leaflets with moderate MR 5. Moderate to severe TR 6. No pericardial effusion
--- NOTE | 2024-08-01 07:37 | P.PCN ---
Date of Procedure: 08/01/24 Operative Findings: Cardioversion Report Performing physician Alphonse Kenney M.D. Procedure performed Successful cardioversion of atrial fibrillation to normal sinus mechanism using 200 J at third attempt Indication Symptomatic atrial fibrillation Complication None Level of sedation The procedure was performed under deep sedation using propofol with DIVISION SERVICE MANAGER in the room Procedure description After obtaining an informed consent the patient was brought to the recovery room. Sedation was introduced using propofol with DIVISION SERVICE MANAGER in the room. Subsequently the patient cardioverted from atrial fibrillation to normal sinus mechanism using 300 J and third attempt Postprocedure management Continue the current medical regimen Continue oral anticoagulation Follow-up with the patient
[2024-08-01 09:30] VITALS: TEMP 97.6
--- NOTE | 2024-08-01 10:58 | P.PN ---
Subjective Progress Note Date: 08/01/24 Reason for Consult (text): Atrial fibrillation with RVR History of present illness: This is a 68-year-old female with past medical history of paroxysmal atrial fibrillation, overweight, diabetes, hypertension, dyslipidemia. Patient was recently hospitalized and discharged on 07/26. She was seen at that time by cardiology for new onset of atrial fibrillation. Patient was started on beta- anthony and oral anticoagulation. Patient states that she has been taking her medications as directed. Patient presented to the hospital due to shortness of breath and palpitations. Patient was found to have a heart rate at home up to 160. She has less lower extremity edema. Blood pressure 109/70, heart rate 100, pulse ox 97% on room air. Patient remains in atrial fibrillation. She is currently on Cardizem drip at 5 mg/h. Patient is seen today in the emergency center waiting for a bed on the observation unit. Dr. Amezcua discussed with the patient the recommendations for MADHAV and cardioversion. Patient is very anxious about the procedures and at this time we will wait until morning to see if she has converted on her own. -EKG: Atrial fibrillation at rate of 116 bpm. -Chest x-ray: Cardiomegaly with mild pulmonary vascular congestion. -Laboratory studies: CBC normal. Sodium 135, potassium 4.4, creatinine 0.56. Troponin negative x 3. proBNP 2250. -Home cardiac medications: Eliquis 5 mg twice daily, atorvastatin 20 mg at supper, lisinopril 20 mg at supper, metoprolol succinate 50 mg at supper. -Echocardiogram performed 07/24/2024 revealed EF of 45 to 50%, aortic sclerosis, mild to moderate mitral regurgitation. 07/31 Patient seen and examined on the observation unit. Patient remains in atrial fibrillation with rate control. She is agreeable this morning to do MADHAV and cardioversion. This will be scheduled for Sunday due to scheduling issues. Blood pressure 128/64, heart rate 75, pulse ox 97% on room air. BC 5.9, hemoglobin 12, BUN 11, creatinine 0.8. 08/01 Patient seen and examined. This morning, patient went for MADHAV and card ioversion. Patient is now in a sinus rhythm. She denies chest pain, palpitations, lightheadedness or dizziness. Blood pressure 111/62, heart rate 67, pulse ox 95% on room air. Physical examination: Gen: This is a 68-year-old obese female in no acute respiratory distress. VS: reviewed HEENT: Head is atraumatic, normocephalic. Pupils equal, round. Sclerae is anicteric. NECK: Supple. No JVD. LUNGS: Clear to auscultation. No wheezes or rhonchi. No intercostal retractions. HEART: Irregular rate and rhythm. No murmur. ABDOMEN: Soft No tenderness. EXTREMITIES: No pedal edema. No calf tenderness. NEUROLOGICAL: Patient is awake, alert and oriented x3. Assessment: Paroxysmal atrial fibrillation with RVR, status post electrocardioversion 08/01, currently in sinus rhythm Diabetes mellitus type 2 Hypertension Dyslipidemia Obesity with BMI of 37 Plan: Continue patient's home cardiac medications with the following changes Continue the increased frequency of Toprol XL 50 mg to twice daily and Reduction of lisinopril to 10 mg at noon Patient is cleared for discharge from cardiology and may follow-up with Dr. Kenney in 1 week. Nurse practitioner note has been reviewed, I agree with documented findings and plan of care. Patient was seen and examined. Objective - Vital Signs Vital signs: Vital Signs Temp 98.3 F 08/01/24 02:19 Pulse 67 08/01/24 08:10 Resp 16 08/01/24 08:10 BP 111/62 08/01/24 08:10 Pulse Ox 95 08/01/24 08:10 FiO2 Intake & Output 07/31/24 08/01/24 08/01/24 18:59 06:59 18:59 Intake Total 700 Balance 700 Intake: IV 700 Other: Voiding Method Toilet Toilet # Voids 1 2 - Labs CBC & Chem 7: 07/31/24 05:45 07/31/24 05:45 Labs: Abnormal Lab Results - Last 24 Hours (Table) 07/31/24 07/31/24 07/31/24 Range/Units 11:58 17:44 21:05 POC Glucose (mg/dL) 275 H 206 H 191 H (70-110) mg/dL 08/01/24 Range/Units 06:20 POC Glucose (mg/dL) 203 H (70-110) mg/dL
[2024-08-01 11:38] VITALS: BP 119/70; PULSE 86; RESP 18
[2024-08-01 12:08] LABS: Glucose,Whole Blood 206 mg/dL (70-110)
--- NOTE | 2024-08-03 13:39 | P.DS ---
Providers Date of admission: 07/30/24 13:22 Expected date of discharge: 08/01/24 Attending physician: Ginette Santos Consults: 07/29/24 21:07 Consult Physician Routine Consulting Provider: Alphonse Kenney Consult Reason/Comments: a fib w rvr Do you want consulting provider notified?: Yes Primary care physician: Annie Fagan [facility] Course: Final diagnosis Atrial fibrillation with fast ventricular rate status post MADHAV and cardioversion Congestive heart failure with acute on chronic systolic dysfunction, EF 45 to 50% Elevated bilirubin with ALT/AST, recommend outpatient follow-up Diabetes mellitus, type II Hypertension Hyperlipidemia History of vertigo Obesity with a BMI of 37.0 Discharge disposition Patient is being discharged in a stable condition with guarded prognosis to home. Patient will follow-up with Dr. Fagan in the outpatient setting upon discharge. Patient is to continue with current medications and outpatient follow-up with cardiology as scheduled. Total time taken is greater than 35 minutes. Hospital course This is a 68-year-old female who was recently admitted with atrial fibrillation with RVR being closely monitored. Patient evaluated by cardiology recommending cardioversion. Unfortunately due to Dubbing Machine Operator availability patient was unable to receive cardioversion until 08/01/2024. Patient has been cleared by cardiology and would like to go home. Patient will continue on current medication as mentioned below and outpatient follow-up with cardiology in the next 1 to 2 weeks. Please refer to cardiology consultation notes for further HPI. Currently no reports of chest pain, shortness of breath, or palpitations. Patient is afebrile. No reports of nausea or vomiting and patient is tolerating diet. Patient will be discharged home today. Guarded prognosis. Physical exam: Gen: This is a 68-year-old female who is awake, alert and oriented x 3, well- developed, well-nourished, obese HEENT: Head is atraumatic, normocephalic. Pupils equal, round. Sclerae is anicteric. NECK: Supple. No JVD. No lymphadenopathy. No thyromegaly. LUNGS: Diminished breath sounds bilaterally otherwise clear to auscultation. No wheezes or rhonchi. No intercostal retractions. HEART: S1, S2 are muffled ABDOMEN: Soft. Bowel sounds are present. No masses. No tenderness. EXTREMITIES: No pedal edema. No calf tenderness. NEUROLOGICAL: Patient is awake, alert and oriented x3. Cranial nerves 2 through 12 are grossly intact. Please refer to medication reconciliation sheet for a list of medications. The impression and plan of care has been dictated by Madonna Fonseca, Nurse Practitioner as directed. Dr. Tom MD I have performed a history and examination and MDM of this patient, discussed the same with the dictator, and agree with the dictator's assessment and plan as written ,documented as a scribe. Based on total visit time, I have performed more than 50% of the visit. Patient Condition at Discharge: Fair Plan - Discharge Summary Discharge Rx Participant: Yes New Discharge Prescriptions: New Furosemide [Lasix] 20 mg PO DAILY #30 tab Metoprolol Succinate (ER) [Toprol XL] 50 mg PO BID #60 tab lisinopriL [Zestril] 10 mg PO 1200 #30 tab Continue Atorvastatin [Lipitor] 20 mg PO AC-SUPPER metFORMIN HCL [Glucophage] 1,000 mg PO AC-BID Apixaban [Eliquis] 5 mg PO AC-BID Discontinued lisinopriL 20 mg PO AC-SUPPER Metoprolol Succinate (ER) [Toprol XL] 50 mg PO AC-SUPPER Discharge Medication List Atorvastatin [Lipitor] 20 mg PO AC-SUPPER 08/13/18 [History] Apixaban [Eliquis] 5 mg PO AC-BID 07/29/24 [History] metFORMIN HCL [Glucophage] 1,000 mg PO AC-BID 07/29/24 [History] Furosemide [Lasix] 20 mg PO DAILY #30 tab 08/01/24 [Rx] Metoprolol Succinate (ER) [Toprol XL] 50 mg PO BID #60 tab 08/01/24 [Rx] lisinopriL [Zestril] 10 mg PO 1200 #30 tab 08/01/24 [Rx] Follow up Appointment(s)/Referral(s): Annie Fagan MD [Primary Care Provider] - 1-2 days Alphonse Kenney MD [STAFF PHYSICIAN] - 1 Week (Office will call patient will appointment ) Shital Shoemaker MD [STAFF PHYSICIAN] - 1 Week (sleep center at [facility] [phone] please call for an appointment Sunday!!! you will see Dr. Shoemaker ) Patient Instructions/Handouts: A-fib (Atrial Fibrillation) (GEN), Cardioversion (GEN), Transesophageal Echocardiogram (DC) Activity/Diet/Wound Care/Special Instructions: Activity limited until follow-up Follow-up with primary care provider on discharge Follow-up cardiology outpatient Continue taking medications as prescribed Discharge Disposition: HOME SELF-CARE
== END 2024-08-01 13:56 | disposition home or self-care (01) | DRG 308 ==
LOC: EC 19:29 → 6NMEDSUR 21:07 → OBSVTOIN 07-30 13:22
PROVIDERS: ADMIT Hospitalist; ATTEND Hospitalist
PROC: B246ZZ4 Ultrasonography of Right and Left Heart, Transesophageal (ICD-10-PCS; 2024-08-01)
PROC: 5A2204Z Restoration of Cardiac Rhythm, Single (ICD-10-PCS; principal; 2024-08-01 07:15)
DX: I48.0 Paroxysmal atrial fibrillation (principal); I50.23 Acute on chronic systolic (congestive) heart failure; Z66 Do not resuscitate; I11.0 Hypertensive heart disease with heart failure; Z68.37 Body mass index [BMI] 37.0-37.9, adult; E05.90 Thyrotoxicosis, unspecified without thyrotoxic crisis or storm; I34.0 Nonrheumatic mitral (valve) insufficiency; D64.9 Anemia, unspecified; E78.5 Hyperlipidemia, unspecified; I10 Essential (primary) hypertension; R42 Dizziness and giddiness; R09.89 Other specified symptoms and signs involving the circulatory and respiratory systems; E66.9 Obesity, unspecified; E87.6 Hypokalemia; F41.9 Anxiety disorder, unspecified; I25.10 Atherosclerotic heart disease of native coronary artery without angina pectoris; Z79.01 Long term (current) use of anticoagulants; Z79.84 Long term (current) use of oral hypoglycemic drugs; Z79.899 Other long term (current) drug therapy; Z71.6 Tobacco abuse counseling; Z88.0 Allergy status to penicillin; Z88.5 Allergy status to narcotic agent; Z98.51 Tubal ligation status
CPT/HCPCS: 36415; 71046; 80053; 83036; 83735; 83880; 84484; 85025; 85610; 85730; 92960; 93005; 93312; 93320; 93325; 96365; 96366; 99291